=== PATIENT | male | born 1990 | race Caucasian/White ===

== ENCOUNTER 2023-05-02 21:17 | Inpatient (IN) | payer SELFPAY ==
[2023-05-02] VITALS (9 sets, daily range): BP systolic 123–164; BP diastolic 77–107; PULSE 77–92; RESP 14–20; TEMP 36.7–37; O2SAT 96–99; BMI 35.4
--- NOTE | 2023-05-02 21:27 | XR_ITS ---
PROCEDURE INFORMATION: Exam: XR Chest Exam date and time: 05/02/2023 9:55 PM Age: 32 years old Clinical indication: Shortness of breath; Additional info: SOA TECHNIQUE: Imaging protocol: Radiologic exam of the chest. Views: 1 view. COMPARISON: [id number] CT abdomen pelvis wo/w con 04/02/2018 12:31 PM FINDINGS: Lungs: No evidence of acute pulmonary disease or infiltrates; lung matta appear clear. Pleural spaces: No evidence of pleural effusion, pneumothorax, or pleural thickening in the visualized pleural spaces. Heart/Mediastinum: No evidence of mediastinal widening or cardiac silhouette enlargement; the mediastinum and heart appear within normal limits for contour and size. Bones/joints: No evidence of acute osseous abnormalities within the visualized portions of the thoracic spine and ribs. Osseous structures appear appropriate for patient age. IMPRESSION: Negative study. No acute cardiopulmonary abnormalities identified. Osseous structures within the visualized portions of the thoracic spine and ribs show no acute abnormalities and appear appropriate for patient age.
--- NOTE | 2023-05-02 21:43 | HMH.EDGENADL ---
Discharge Plan Disposition Patient Disposition: Home, Self-Care Prescriptions Prescriptions: No Action sulfamethoxazole-trimethoprim 1 EACH tablet 1 each PO BID Qty: 6 0RF ketorolac 10 MG tablet 10 mg PO Q12 Qty: 6 0RF tamsulosin 0.4 MG capsule 0.4 mg PO HS Qty: 5 0RF ondansetron 4 MG tablet,disintegrating 4 mg PO Q8HP PRN (Reason: Nausea) Qty: 6 0RF Referrals Follow up/Referrals: Provider,Referral, MD [Primary Care Provider] - See instructions Clinical Impressions Clinical Impression: Non-ST elevation [place] (NSTEMI) Discharge ED Provider: José Luis Mendoza General Adult HPI General Chief complaint: PAIN Stated complaint: jaw pain burning sensation Time Seen by Provider: 05/02/23 21:21 Mode of Arrival: Ambulatory Limitations: No Limitations Description of Symptoms (Recalled from ER Triage Doc. by RN): Pt c/o burning sensation across chest that radiates up neck and into jaw starting 2 days ago. Pt also c/o SOA, cough, and lightheadedness associated with exertion. Pt states symptoms improve with rest. History of Present Illness HPI narrative: 32-year-old male history of GERD presenting with chest burning and shortness of breath. Patient states shortness of breath started last couple days when he is been exerting himself and associated with burning in the center of his chest. Radiates across his chest and up to his neck. Associated with numbness in his jaw. No diaphoresis, nausea or vomiting or neurologic deficits otherwise. Related Data Previous Rx's Medication Instructions Recorded ketorolac 10 mg tablet 10 mg PO Q12 #6 tabs 04/02/18 ondansetron 4 mg disintegrating 4 mg PO Q8HP PRN Nausea ##6 04/02/18 tablet sulfamethoxazole 800 1 each PO BID #6 tabs 04/02/18 mg-trimethoprim 160 mg tablet tamsulosin 0.4 mg capsule 0.4 mg PO HS #5 caps 04/02/18 Allergies Allergy/AdvReac Type Severity Reaction Status Date / Time INGREDIENT: NO KNOWN - NO Allergy Unknown Uncoded 06/26/17 14:51 KNOWN DRUG ALLERGY NKA - NO KNOWN ALLERGIES Allergy Unknown Uncoded 06/26/17 14:51 [facility] Disclaimer: The information contained in this section may have been updated after the patient was seen, as this information can be updated by other users. Social History Smoking Status: Unknown if ever smoked alcohol intake: never current occupational status: employed Travel in the last 8 weeks: None ROS Obtained: Yes All systems reviewed & no additional complaints except as documented Physical Exam General General appearance: alert and in no apparent distress Head Head exam: atraumatic and normocephalic Eye Eye exam: Present normal appearance, PERRL and EOMI ENT ENT exam: Present mucous membranes moist Neck Neck exam: Present normal inspection, full ROM and trachea midline Respiratory Respiratory exam: Present normal lung sounds bilaterally; Absent respiratory distress, wheezes, stridor, accessory muscle use or prolonged expiratory phase Cardiovascular Cardiovascular exam: Present regular rate and normal rhythm Abdominal Exam Abdominal exam: Present soft; Absent distention, tenderness, guarding, rebound, rigidity or normal bowel sounds Extremities Exam Extremities exam: Absent edema Neurological Exam Neurological exam: Present alert, oriented X3, CN II-XII intact and normal gait; Absent motor sensory deficit Skin Skin exam: Present warm and dry; Absent diaphoresis or erythema Medical Decision Making Medical Records Medical records reviewed: Yes I reviewed the patient's medical records. [place] Inquiry Pt receiving controlled substance: No [place] was queried for this patient: No Vital Signs: 05/02/23 21:18 Temperature 98.6 F Temperature Source Oral Pulse Rate [Left Radial] 92 H Respiratory Rate 20 Blood Pressure [Right Arm] 158/107 H Blood Pressure Mean [Right Arm] 124 02 Sat by Pulse Oximetry 97 Oxygen Delivery Method Room Air Lab Data Lab Results 05/02/23 21:5
--- NOTE | 2023-05-02 21:49 | ECG_ITS ---
APPROVED REPORT Exam: Resting ECG HR:93 bpm ECG Measurements Heart Rate 93 AXES MO 142 P 64 QRSd 89 QRS 77 QT 338 T -19 QTc 389 Conclusion SINUS RHYTHM NONSPECIFIC T-WAVE ABNORMALITY ABNORMAL ECG UNCONFIRMED REPORT Electronically signed by : Devin Navarro MD 05/03/2023 21:26:58
[2023-05-02 22:04] LABS: Basophils # 0.1 K/mm3 (0-0.2); Basophils % 1.1 % (0.1-2.0); Eosinophils # 0.3 K/mm3 (0.0-0.4); Eosinophils % 2.6 % (0.1-12.0); Hemoglobin 14.8 g/dL (14.1-18.0); Lymphocytes # 3.7 K/mm3 (0.7-4.5); Lymphocytes % 30.9 % (10-50); Mean Corpuscular HGB Conc 34.5 g/dL (31.8-35.4); Mean Corpuscular Hemoglobin 29.8 pg (27.0-31.2); Mean Corpuscular Volume 86.4 fl (80-94); Mean Platelet Volume 8.5 fl (7.4-10.4); Monocytes # 0.7 K/mm3 (0.1-1.0); Monocytes % 5.8 % (1.7-9.3); Neutrophils # 7.2 K/mm3 (1.8-7.8); Neutrophils % 59.5 % (37.0-80.0); Platelet Count 300 K/mm3 (142-424); Red Blood Count 4.97 M/mm3 (4.60-6.20); Red Cell Distribution Width 13.8 % (11.5-17.5)
[2023-05-02 22:13] LABS: Chloride 104 mmol/L (98-107); Potassium 4.1 mmoL/L (3.5-5.1); Sodium 137 mmol/L (136-145)
[2023-05-02 22:15] LABS: Blood Urea Nitrogen 15 mg/dl (9-20); Creatinine Clearance Estimated 233 mL/min (50-200); Estimated Glomerular Filt Rate 131 ml/min (>60); GFR (African American) 158 ML/MIN (>60)
[2023-05-02 22:16] LABS: Alanine Aminotransferase 40 U/L (12-78); Albumin Level 4.6 g/dl (3.5-5.0); Albumin/Globulin Ratio 1.4 (1.1-1.8); Alkaline Phosphatase 69 U/L (38-126); Anion Gap 13.1 mEq/L (5-15); Aspartate Amino Transferase 32 U/L (17-59); Bilirubin,Total 0.2 mg/dl (0.2-1.3); Carbon Dioxide 24 mmol/L (22.0-30.0); Globulin 3.4 g/dL (1.3-3.2); Lipase 162 U/L (23-300)
[2023-05-02 22:17] LABS: Calcium 8.9 mg/dl (8.4-10.2); Glucose 334 mg/dl (74-100)
--- NOTE | 2023-05-02 22:40 | PC.NURSE ---
received critical lab from maurice cisneros
--- NOTE | 2023-05-02 22:52 | ECG_ITS ---
APPROVED REPORT Exam: Resting ECG HR:76 bpm ECG Measurements Heart Rate 76 AXES RI 146 P 31 QRSd 93 QRS 70 QT 345 T -22 QTc 376 Conclusion SINUS RHYTHM NONSPECIFIC T-WAVE ABNORMALITY ABNORMAL ECG UNCONFIRMED REPORT Electronically signed by : Devin Navarro MD 05/03/2023 21:26:47
--- NOTE | 2023-05-02 23:20 | PC.NURSE ---
Contacted pharmacy for heparin consult.
--- NOTE | 2023-05-02 23:32 | EXP.HP ---
History of Present Illness *Admission Date: 05/02/23 *Reason for visit:: intermittent chest pressure *History of present illness: This a 32-year-old male significantr history of heavy smoker, 1-2 PPD over last 17 years. obesity, GERD presenting with chest pressure and shortness of breath. Patient stated shortness of breath started last couple days when he is been exerting himself and associated with pressure in the center of his chest. Sometime patient describe it as burning. Radiates across his chest and up to his neck. Associated with numbness in his jaw. No diaphoresis, nausea or vomiting or neurological deficits otherwise. Admitted for further work up and management. [facility] Disclaimer: The information contained in this section may have been updated after the patient was seen, as this information can be updated by other users. Social History (Updated 05/03/23 @ 00:18 by Sofy Hubbard RN) Smoking Status: Unknown if ever smoked alcohol intake: never current occupational status: employed Travel in the last 8 weeks: None Review of Systems Review of Systems Review of systems:: pertinent systems reviewed and negative unless documented below Meds Home Medications and Allergies Home Medications Medication Instructions Recorded Confirmed Type No Known Home Medications 05/03/23 05/03/23 History New Prescriptions to Start Prescriptions: Allergies Allergy/AdvReac Type Severity Reaction Status Date / Time No Known Allergies Allergy Unverified 05/03/23 07:39 Exam Data for Last 24 hours Vital signs and Labs for Last 24 Hours: Temp Pulse Resp BP Pulse Ox O2 Del Method 98.6 F 92 H 20 158/107 H 97 Room Air 05/02/23 21:18 05/02/23 21:18 05/02/23 21:18 05/02/23 21:18 05/02/23 21:18 05/02/23 21:18 Laboratory Results - last 24 hr 05/02/23 21:50: WBC 12.0 H, RBC 4.97, Hgb 14.8, Hct 43.0, MCV 86.4, MCH 29.8, MCHC 34.5, RDW 13.8, Plt Count 300, MPV 8.5, Neut % (Auto) 59.5, Lymph % (Auto) 30.9, [place] % (Auto) 5.8, Eos % (Auto) 2.6, Baso % (Auto) 1.1, Neut # (Auto) 7.2, Lymph # (Auto) 3.7, [place] # (Auto) 0.7, Eos # (Auto) 0.3, Baso # (Auto) 0.1, Sodium 137, Potassium 4.1, Chloride 104, Carbon Dioxide 24, Anion Gap 13.1, BUN 15, Creatinine 0.70, Estimated Creat Clear 233, Estimated GFR 131, Est GFR ( Amer) 158, Glucose 334 H, Calcium 8.9, Total Bilirubin 0.2, AST 32, ALT 40, Alkaline Phosphatase 69, Troponin I 0.60 H, Total Protein 8.0, Albumin 4.6, Globulin 3.4 H, Albumin/Globulin Ratio 1.4, Lipase 162 I & O for Last 24 hours: Intake & Output 04/29/23 04/30/23 05/01/23 05/02/23 23:59 23:59 23:59 23:59 Weight 108.862 kg Constitutional Constitutional: mild distress, obese and cooperative *Routine HEENT Exam Head: Present normocephalic and atraumatic Eye: Present EOMI, PERRL and normal accommodation ENT: Present mucous membranes moist *Routine Neck Exam Neck: Present supple, full ROM and trachea midline *Routine Respiratory Exam Respiratory: Present normal respiratory effort, able to speak in complete sentences and symmetric chest movement *Routine Cardiovascular Exam Cardiovascular: Present RRR, Normal S1 and Normal S2 *Routine Abdominal Exam Abdominal: Present soft, normoactive bowel sounds and obese; Absent organomegaly *Routine Rectal Exam Rectal:: deferred *Routine Genitalia Exam Genitalia:: deferred *Routine Extremities Exam Extremities: Present full ROM, pulses intact and normal capillary refill; Absent cyanosis, clubbing or edema *Routine Skin Exam Skin: Present intact, dry and warm *Routine Neurological Exam Neurological: Present alert, oriented X3, motor deficit, normal reflexes, moving all extremities and normal speech Routine Psychiatric Exam Psychiatric: Present cooperative, good insight, good judgment and anxious H&P: Result Imaging and Cardiology EKG: Status: image reviewed by me and final report Chest x-ray: Status: image reviewed by me and
--- NOTE | 2023-05-02 23:34 | PC.NURSE ---
ER Md on phone with hospitalist for admission, pt has been accepted and house superintendent made aware for bed assignment
--- NOTE | 2023-05-02 23:52 | PC.NURSE ---
report called to stanislav thakkar rn
[2023-05-02 23:56] LABS: Prothrombin Time 9.8 seconds (10.1-12.5)
[2023-05-02 23:58] LABS: PTT Heparin (inpatient only) 27.4 Seconds (23.6-34.0)
[2023-05-03] VITALS (24 sets, daily range): BP systolic 128–175; BP diastolic 69–112; PULSE 79–98; RESP 16–18; TEMP 36.4–37; O2SAT 94–99; BMI 34.4
--- NOTE | 2023-05-03 | PC.NURSE ---
Patient arrived to floor via stretcher at 23:59.
[2023-05-03 01:13] LABS: Troponin I 0.65 ng/ml (0.00-0.034)
[2023-05-03 02:56] LABS: Amphetamine/Metha Screen,Urine Negative ng/ml (<1000); Benzodiazepines Screen,Urine Negative ng/ml (<200)
[2023-05-03 02:57] LABS: Barbiturates Screen,Urine Negative ng/ml (<200)
[2023-05-03 02:58] LABS: Cannabinoid Screen,Urine Positive ng/ml (<50); Cocaine Screen,Urine Negative ng/ml (<300)
[2023-05-03 02:59] LABS: Methadone Screen,Urine Negative ng/ml (<300); Opiate Screen,Urine Negative ng/ml (<300)
[2023-05-03 03:00] LABS: Phencyclidine Screen,Urine Negative ng/ml (<25)
[2023-05-03 03:53] LABS: Basophils # 0.1 K/mm3 (0-0.2); Basophils % 1.3 % (0.1-2.0); Eosinophils # 0.3 K/mm3 (0.0-0.4); Eosinophils % 2.8 % (0.1-12.0); Hematocrit 42.4 % (42.0-52.0); Hemoglobin 14.7 g/dL (14.1-18.0); Lymphocytes # 4.4 K/mm3 (0.7-4.5); Lymphocytes % 43.6 % (10-50); Mean Corpuscular HGB Conc 34.6 g/dL (31.8-35.4); Mean Corpuscular Hemoglobin 30.5 pg (27.0-31.2); Mean Corpuscular Volume 88.2 fl (80-94); Mean Platelet Volume 8.4 fl (7.4-10.4); Monocytes # 0.5 K/mm3 (0.1-1.0); Monocytes % 4.7 % (1.7-9.3); Neutrophils # 4.8 K/mm3 (1.8-7.8); Neutrophils % 47.7 % (37.0-80.0); Platelet Count 278 K/mm3 (142-424); Red Cell Distribution Width 13.8 % (11.5-17.5)
[2023-05-03 04:18] LABS: Chloride 105 mmol/L (98-107); Potassium 3.7 mmoL/L (3.5-5.1); Sodium 137 mmol/L (136-145)
[2023-05-03 04:20] LABS: Alanine Aminotransferase 36 U/L (12-78); Blood Urea Nitrogen 12 mg/dl (9-20); Creatinine Clearance Estimated 264 mL/min (50-200); Estimated Glomerular Filt Rate 156 ml/min (>60); GFR (African American) 189 ML/MIN (>60)
[2023-05-03 04:21] LABS: Albumin/Globulin Ratio 1.3 (1.1-1.8); Alkaline Phosphatase 82 U/L (38-126); Anion Gap 12.7 mEq/L (5-15); Aspartate Amino Transferase 31 U/L (17-59); Calcium 8.1 mg/dl (8.4-10.2); Carbon Dioxide 23 mmol/L (22.0-30.0); Cholesterol 210 mg/dl (140-200); Globulin 3.1 g/dL (1.3-3.2); Glucose 301 mg/dl (74-100); Magnesium 1.4 mg/dl (1.6-2.3); Total Protein,Serum 7.1 g/dl (6.3-8.2)
[2023-05-03 04:22] LABS: HDL Cholesterol 21 mg/dl (40-60)
[2023-05-03 04:26] LABS: Hemoglobin A1C 10.2 % (4.0-6.0)
[2023-05-03 04:33] LABS: Direct LDL Cholesterol 44.32 mg/dL (100-129)
--- NOTE | 2023-05-03 04:44 | US_ITS ---
FINAL REPORT TECHNIQUE: Ultrasound images of the kidneys and bladder were obtained. CLINICAL HISTORY: HTN FINDINGS: The right kidney measures 11.1 cm in length. It is normal in echogenicity. There is no hydronephrosis. The left kidney measures 10.9 cm in length. It is normal in echogenicity. There is no hydronephrosis. There is fatty infiltration of the liver. The spleen is normal. IMPRESSION: Fatty liver. Reviewed, Interpreted and Dictated by Tato Cardenas III, MD Transcribed by Brittany Munoz Authenticated and [facility]
[2023-05-03 04:48] LABS: Troponin I 1.01 ng/ml (0.00-0.034)
--- NOTE | 2023-05-03 04:51 | PC.NURSE ---
CRITICAL TROPONIN REPORTED FROM LAB 1.01 NAME AND VERIFIED. LESLIE FREEMAN NOTIFIED. NO NEW ORDERS AT THIS TIME
[2023-05-03 05:24] LABS: Triglycerides 1735 mg/dl (30-150)
[2023-05-03 05:25] LABS: Bilirubin,Total 0.1 mg/dl (0.2-1.3)
[2023-05-03 06:47] LABS: POC Glucose,Bedside 251 (70-110)
--- NOTE | 2023-05-03 07:52 | EXP.ACUTE.PN ---
Subjective *Date: 05/03/23 *Time: 14:19 Interval history: Improvement in pain. Patient stable on room air. Going to [employer] this morning. No nausea or vomiting. Further discussion, patient elicits that for the past 6 to 12 months has been having increased thirst, urination, nocturia. Concerning signs of diabetes. Discussed his diagnosis of diabetes and CAD today. Medical Exam Vital signs and Labs for Last 24 Hours: Vital Signs Temp Pulse Pulse Resp BP BP Pulse Ox 05/03/23 07:30 98.0 F 87 18 175/89 H 97 05/03/23 06:42 05/03/23 05:00 05/03/23 04:00 90 05/03/23 03:00 05/03/23 04:00 97.6 F 80 18 143/82 H 96 05/03/23 00:30 05/03/23 01:00 05/03/23 00:00 98.3 F 86 18 164/104 H 98 05/02/23 23:55 98.1 F 83 14 164/104 H 05/02/23 23:30 89 150/95 H 98 05/02/23 23:15 86 147/89 H 97 05/02/23 23:00 82 141/87 H 96 05/02/23 22:45 83 134/86 97 05/02/23 22:30 83 137/84 97 05/02/23 22:15 77 123/77 97 05/02/23 22:02 86 130/97 H 98 05/02/23 21:18 98.6 F 92 H 20 158/107 H 97 O2 Del Method 05/03/23 07:30 Room Air 05/03/23 06:42 Room Air 05/03/23 05:00 Room Air 05/03/23 04:00 05/03/23 03:00 Room Air 05/03/23 04:00 Room Air 05/03/23 00:30 Room Air 05/03/23 01:00 Room Air 05/03/23 00:00 Room Air 05/02/23 23:55 Room Air 05/02/23 23:30 05/02/23 23:15 05/02/23 23:00 05/02/23 22:45 05/02/23 22:30 05/02/23 22:15 05/02/23 22:02 05/02/23 21:18 Room Air Intake and Output 05/02/23 05/02/23 05/03/23 15:59 23:59 07:59 Intake Total 375 / 375 Output Total 400 / 400 Balance - Intake: Intake, Total IV Amount 375 / 375 0.9 % Sodium Chloride 1000ML 1, 257 / 257 000 ml @ 50 mls/hr IV .Q20H WALLY Rx#:[id number] Heparin Sodium,Porcine/D5w 500 118 / 118 ml @ 1,000 UNITS/HR 20 mls/hr IV .Q25H WALLY Rx#:[id number] Output: Output, Urine Amount 400 / 400 Other: Number of Unmeasured Voids 1 Weight 108.862 kg 105.404 kg Patient Weight 05/03/23 23:59 Weight 105.404 kg Laboratory Results - last 24 hr 05/02/23 00:07: Urine Opiates Screen Negative, Urine Methadone Screen Negative, Ur Barbituates Screen Negative, Ur Phencyclidine Scrn Negative, Ur Amphetamines Screen Negative, U Benzodiazepines Scrn Negative, Urine Cocaine Screen Negative, U Marijuana (THC) Screen Positive H 05/02/23 21:50: WBC 12.0 H, RBC 4.97, Hgb 14.8, Hct 43.0, MCV 86.4, MCH 29.8, MCHC 34.5, RDW 13.8, Plt Count 300, MPV 8.5, Neut % (Auto) 59.5, Lymph % (Auto) 30.9, [place] % (Auto) 5.8, Eos % (Auto) 2.6, Baso % (Auto) 1.1, Neut # (Auto) 7.2, Lymph # (Auto) 3.7, [place] # (Auto) 0.7, Eos # (Auto) 0.3, Baso # (Auto) 0.1, PT 9.8 L, INR 0.90, APTT 27.4, Sodium 137, Potassium 4.1, Chloride 104, Carbon Dioxide 24, Anion Gap 13.1, BUN 15, Creatinine 0.70, Estimated Creat Clear 233, Estimated GFR 131, Est GFR ( Amer) 158, Glucose 334 H, Calcium 8.9, Total Bilirubin 0.2, AST 32, ALT 40, Alkaline Phosphatase 69, Troponin I 0.60 H, Total Protein 8.0, Albumin 4.6, Globulin 3.4 H, Albumin/Globulin Ratio 1.4, Lipase 162 05/03/23 00:30: Troponin I 0.65 H 05/03/23 03:43: WBC 10.0, RBC 4.80, Hgb 14.7, Hct 42.4, MCV 88.2, MCH 30.5, MCHC 34.6, RDW 13.8, Plt Count 278, MPV 8.4, Neut % (Auto) 47.7, Lymph % (Auto) 43.6, [place] % (Auto) 4.7, Eos % (Auto) 2.8, Baso % (Auto) 1.3, Neut # (Auto) 4.8, Lymph # (Auto) 4.4, [place] # (Auto) 0.5, Eos # (Auto) 0.3, Baso # (Auto) 0.1, Sodium 137, Potassium 3.7, Chloride 105, Carbon Dioxide 23, Anion Gap 12.7, BUN 12, Creatinine 0.60 L, Estimated Creat Clear 264, Estimated GFR 156, Est GFR ( Amer) 189, Glucose 301 H, Hemoglobin A1c 10.2 H, Calcium 8.1 L, Magnesium 1.4 L, Total Bilirubin 0.1 L, AST 31, ALT 36, Alkaline Phosphatase 82, Troponin I 1.01 H, Total Protein 7.1, Albumin 4.0 D, Globulin 3.1, Albumin/Globulin Ratio 1.3, Triglyceride
--- NOTE | 2023-05-03 08:51 | IR_ITS ---
APPROVED REPORT Patient Location: Inpatient [facility] S[facility]: MARY JANE Baxter RT (R) PROCEDURES Left heart catheterization Left ventriculogram Selective coronary angiogram Drug-eluting stent deployment to the proximal and mid LAD INDICATION Acute non-ST elevation myocardial infarction, Coronary artery disease Informed consent was obtained prior to the procedure. COMPLICATIONS None Estimated Blood Loss: Less than 10 mls TECHNIQUE One percent lidocaine used to anesthetize the right anterior aspect of the wrist. The right radial artery was accessed via the Seldinger technique. A 6 Luxembourg[place] sheath was placed in the right radial artery. 2.5 mg of Verapamil, 800 mcg of nitroglycerin, 1mg Lidocaine and 5000 U Heparin were given through the arterial sheath. The papa catheter was also used to perform left heart catheterization, left ventriculogram and selective coronary angiogram. The end of the diagnostic angiogram therapeutic heparin was administered given therapeutic ACT and the guide catheter was placed in left main artery followed by Choice PT extra-support wire being placed on the LAD. A 3 mm x 38 mm Anthony frontier stent was deployed at 18 meena reducing this critical stenosis to 0%. TRACY-3 flow was present before and after the procedure. At the end of procedure the apparatus was removed the sheath was removed and hemostasis was achieved using TR banding patient was transferred to the postop holding in stable condition ANGIOGRAPHIC RESULTS The left main artery Normal The left anterior descending artery Has a proximal concentric 70 followed by 50% stenosis followed by a mid vessel 80 to 90% stenosis. The first diagonal artery is 2 mm in diameter and has an ostial 50% stenosis followed by proximal 90% concentric stenosis The circumflex artery Gives rise to a moderate size ramus intermedius which has a proximal concentric 70% stenosis. The circumflex artery is dominant and has diffuse 10 to 20% stenoses The right coronary artery Is nondominant and has proximal greater than 90% stenosis with mid vessel 80% stenoses. Distal vessel was subtotally occluded and fills via [id number] collaterals The LEIVA ventriculogram reveals Preserved at 55% The left ventricular end-diastolic pressure 25 mmHg IMPRESSION Coronary disease as described above Successful stenting of the proximal to mid LAD severe disease reduced to 0% with 1 long drug-eluting stent Persistent severe stenosis in the first diagonal artery which is best managed medically at this time Persistent moderate to severe stenosis in a large ramus intermedius Chronically occluded right coronary artery which fills via [id number] collaterals Preserved ejection fraction with elevated LVEDP PLAN 1. Effient 10 mg daily plus aspirin 81 mg daily 2. Immediate avoidance of tobacco products 3. LDL less than 55 to be achieved with high intensity statin 4. Recommend stress test in 6 weeks to determine if reversible ischemia is present in the ramus intermedius 5. Recommend sleep study 6. Aggressive risk factor modification 7. Cardiac rehabilitation Electronically signed by : Papito Davenport MD 05/03/2023 13:29:04
[2023-05-03 10:14] LABS: PTT Heparin (inpatient only) 27.9 Seconds (23.6-34.0)
--- NOTE | 2023-05-03 10:42 | EXP.CARD.CON ---
History of Present Illness History of Present Illness Consult date: 05/03/23 Requesting physician: Romulo Virk Consult reason: chest pain Chief complaint: Unstable angina History of present illness: 32-year-old male with past medical hx of heavy smoker, 1-2 PPD over last 17 years, obesity, GERD, new dx of DM and strong family hx of CAD presented to ED last night with complaint of chest pain and soa intermittently x 3 days, present at rest and exacerbated with activity, radiating across chest and into jaws. He reports he does not usually go to the doctor but continued to feel so bad his family made him come to the ER. EKG upon presentation to ER shows normal sinus rhythm with a rate of 93 with T wave inversion in inferior leads but without reciprocal change. Labs as follow: WBC 10, hemoglobin 14.7, sodium 137, potassium 4.1, creatinine 0.7, A1c 10.2, initial troponin 0.6 trending up to 1.01 and triglycerides 1735. Chest x-ray was negative for acute process. Patient was admitted for cardiology evaluation. [facility] Disclaimer: The information contained in this section may have been updated after the patient was seen, as this information can be updated by other users. Social History (Updated 05/03/23 @ 00:18 by Sofy Hubbard RN) Smoking Status: Unknown if ever smoked alcohol intake: never current occupational status: employed Travel in the last 8 weeks: None Review of Systems *Cardiovascular Cardiovascular: Reports chest pain and Reports dyspnea *Respiratory Respiratory: Reports dyspnea Exam Data for Last 24 hours Vital signs and Labs for Last 24 Hours: Temp Pulse Resp BP Pulse Ox O2 Del Method 98.0 F 90 18 175/89 H 97 Room Air 05/03/23 07:30 05/03/23 08:00 05/03/23 07:30 05/03/23 07:30 05/03/23 07:30 05/03/23 07:30 Laboratory Results - last 24 hr 05/02/23 00:07: Urine Opiates Screen Negative, Urine Methadone Screen Negative, Ur Barbituates Screen Negative, Ur Phencyclidine Scrn Negative, Ur Amphetamines Screen Negative, U Benzodiazepines Scrn Negative, Urine Cocaine Screen Negative, U Marijuana (THC) Screen Positive H 05/02/23 21:50: WBC 12.0 H, RBC 4.97, Hgb 14.8, Hct 43.0, MCV 86.4, MCH 29.8, MCHC 34.5, RDW 13.8, Plt Count 300, MPV 8.5, Neut % (Auto) 59.5, Lymph % (Auto) 30.9, [place] % (Auto) 5.8, Eos % (Auto) 2.6, Baso % (Auto) 1.1, Neut # (Auto) 7.2, Lymph # (Auto) 3.7, [place] # (Auto) 0.7, Eos # (Auto) 0.3, Baso # (Auto) 0.1, PT 9.8 L, INR 0.90, APTT 27.4, Sodium 137, Potassium 4.1, Chloride 104, Carbon Dioxide 24, Anion Gap 13.1, BUN 15, Creatinine 0.70, Estimated Creat Clear 233, Estimated GFR 131, Est GFR ( Amer) 158, Glucose 334 H, Calcium 8.9, Total Bilirubin 0.2, AST 32, ALT 40, Alkaline Phosphatase 69, Troponin I 0.60 H, Total Protein 8.0, Albumin 4.6, Globulin 3.4 H, Albumin/Globulin Ratio 1.4, Lipase 162 05/03/23 00:30: Troponin I 0.65 H 05/03/23 03:43: WBC 10.0, RBC 4.80, Hgb 14.7, Hct 42.4, MCV 88.2, MCH 30.5, MCHC 34.6, RDW 13.8, Plt Count 278, MPV 8.4, Neut % (Auto) 47.7, Lymph % (Auto) 43.6, [place] % (Auto) 4.7, Eos % (Auto) 2.8, Baso % (Auto) 1.3, Neut # (Auto) 4.8, Lymph # (Auto) 4.4, [place] # (Auto) 0.5, Eos # (Auto) 0.3, Baso # (Auto) 0.1, Sodium 137, Potassium 3.7, Chloride 105, Carbon Dioxide 23, Anion Gap 12.7, BUN 12, Creatinine 0.60 L, Estimated Creat Clear 264, Estimated GFR 156, Est GFR ( Amer) 189, Glucose 301 H, Hemoglobin A1c 10.2 H, Calcium 8.1 L, Magnesium 1.4 L, Total Bilirubin 0.1 L, AST 31, ALT 36, Alkaline Phosphatase 82, Troponin I 1.01 H, Total Protein 7.1, Albumin 4.0 D, Globulin 3.1, Albumin/Globulin Ratio 1.3, Triglycerides 1735 H, Cholesterol 210 H, LDL Cholesterol Direct 44.32 L, HDL Cholesterol 21 L, Cholesterol/HDL Ratio 10.0 H 05/03/23 06:10: APTT 27.9 05/03/23 06:35: POC Glucose 251 H I & O for Last 24 hours: Intake & Output 04/30/23 05/01/23 05/02/23 05/03/23 23:59 23:59 23:59 23:59 Intake Total 645 / 645 Output Total 400 / 400 Balance 24
--- NOTE | 2023-05-03 10:52 | HMH.PHAHEP ---
[facility] Pharmacy Heparin Dosing Demographic Data Admission date:: 05/02/23 Date: 05/03/23 Time: 10:52 Allergies Allergy/AdvReac Type Severity Reaction Status Date / Time No Known Allergies Allergy Unverified 05/03/23 07:39 Height: 1.75 m Weight: 105.4 kg Indication Medication therapy:: Heparin Current Active Problems (Updated 05/03/23 @ 14:23 by Romulo Virk MD) Newly diagnosed diabetes (Acute) CAD (coronary artery disease) (Acute) HLD (hyperlipidemia) (Acute) Tobacco abuse (Acute) Obesity (BMI 30-39.9) (Acute) Intermittent chest pain (Acute) Hypertensive urgency (Acute) Tetrahydrocannabinol (THC) use disorder, mild, abuse (Acute) Non-ST elevation SD (NSTEMI) (Acute) CVA?: No Bleeding problem?: No Kidney disease?: No SD?: Yes Desired PTT range:: 50-75 seconds Labs Anticoagulation Lab Results:: 05/02/23 05/03/23 21:50 03:43 Hgb 14.8 14.7 Hct 43.0 42.4 Plt Count 300 278 Monitoring Dose Monitor 1: Date: 05/02/23 Time: 21:50 PTT Result:: 27.4 Infusion Rate:: HEPARIN BOLUS 4000 UNIT BOLUS; HEPARIN 20 ML/HR (1000 UNITS/HR) Dose Monitor 2: Date: 05/03/23 Time: 06:10 PTT Result:: 27.9 Infusion Rate:: HEPARIN 4000 UNITS BOLUS; HEPARIN 28 ML/HR (1400 UNITS/HR) Core Measures Is INR > or = 2 at discharge?: No Most Recent Labs:: Laboratory Results - last 24 hr 05/02/23 00:07: Urine Opiates Screen Negative, Urine Methadone Screen Negative, Ur Barbituates Screen Negative, Ur Phencyclidine Scrn Negative, Ur Amphetamines Screen Negative, U Benzodiazepines Scrn Negative, Urine Cocaine Screen Negative, U Marijuana (THC) Screen Positive H 05/02/23 21:50: WBC 12.0 H, RBC 4.97, Hgb 14.8, Hct 43.0, MCV 86.4, MCH 29.8, MCHC 34.5, RDW 13.8, Plt Count 300, MPV 8.5, Neut % (Auto) 59.5, Lymph % (Auto) 30.9, [place] % (Auto) 5.8, Eos % (Auto) 2.6, Baso % (Auto) 1.1, Neut # (Auto) 7.2, Lymph # (Auto) 3.7, [place] # (Auto) 0.7, Eos # (Auto) 0.3, Baso # (Auto) 0.1, PT 9.8 L, INR 0.90, APTT 27.4, Sodium 137, Potassium 4.1, Chloride 104, Carbon Dioxide 24, Anion Gap 13.1, BUN 15, Creatinine 0.70, Estimated Creat Clear 233, Estimated GFR 131, Est GFR ( Amer) 158, Glucose 334 H, Calcium 8.9, Total Bilirubin 0.2, AST 32, ALT 40, Alkaline Phosphatase 69, Troponin I 0.60 H, Total Protein 8.0, Albumin 4.6, Globulin 3.4 H, Albumin/Globulin Ratio 1.4, Lipase 162 05/03/23 00:30: Troponin I 0.65 H 05/03/23 03:43: WBC 10.0, RBC 4.80, Hgb 14.7, Hct 42.4, MCV 88.2, MCH 30.5, MCHC 34.6, RDW 13.8, Plt Count 278, MPV 8.4, Neut % (Auto) 47.7, Lymph % (Auto) 43.6, [place] % (Auto) 4.7, Eos % (Auto) 2.8, Baso % (Auto) 1.3, Neut # (Auto) 4.8, Lymph # (Auto) 4.4, [place] # (Auto) 0.5, Eos # (Auto) 0.3, Baso # (Auto) 0.1, Sodium 137, Potassium 3.7, Chloride 105, Carbon Dioxide 23, Anion Gap 12.7, BUN 12, Creatinine 0.60 L, Estimated Creat Clear 264, Estimated GFR 156, Est GFR ( Amer) 189, Glucose 301 H, Hemoglobin A1c 10.2 H, Calcium 8.1 L, Magnesium 1.4 L, Total Bilirubin 0.1 L, AST 31, ALT 36, Alkaline Phosphatase 82, Troponin I 1.01 H, Total Protein 7.1, Albumin 4.0 D, Globulin 3.1, Albumin/Globulin Ratio 1.3, Triglycerides 1735 H, Cholesterol 210 H, LDL Cholesterol Direct 44.32 L, HDL Cholesterol 21 L, Cholesterol/HDL Ratio 10.0 H 05/03/23 06:10: APTT 27.9 05/03/23 06:35: POC Glucose 251 H If INR was < than 2.0 why was therapy stopped?: heparin drip stopped after heart cath Were Heparin and Warfarin started on the same day?: No If not, why?: heparin drip stopped after heart cath
[2023-05-03 11:49] LABS: POC Glucose,Bedside 232 (70-110)
[2023-05-03 14:09] LABS: CATHL Activated Clotting Time 303 SEC (74-125)
[2023-05-03 16:19] LABS: POC Glucose,Bedside 279 (70-110)
[2023-05-03 21:44] LABS: POC Glucose,Bedside 175 (70-110)
--- NOTE | 2023-05-03 22:47 | PC.NURSE ---
PATIENT HAVING CHEST PAIN. DR GREEN ORDERED STAT 12 LEAD AND WANTS A PICTURE SENT TO HIM. ALSO LYDIA Singh NP ORDERED SL NTG.
--- NOTE | 2023-05-03 22:55 | ECG_ITS ---
APPROVED REPORT Exam: Resting ECG HR:82 bpm ECG Measurements Heart Rate 82 AXES LA 152 P 41 QRSd 89 QRS 60 QT 346 T 10 QTc 385 Conclusion SINUS RHYTHM NORMAL ECG UNCONFIRMED REPORT Electronically signed by : Devin Navarro MD 05/04/2023 17:04:46
--- NOTE | 2023-05-03 23:07 | PC.NURSE ---
12 LEAD EKG OBTAINED, AND WAS WNL, AND SENT TO DR GREENFOR REVIEW.
--- NOTE | 2023-05-03 23:19 | PC.NURSE ---
AT 2305 2ND NTG S.L. GIVEN. CP 09/15. BP WAS 138/84 AT THAT TIME. PATIENT REPORTS RELIEF BUT FEELS NERVOUS.
--- NOTE | 2023-05-03 23:35 | CA_ITS ---
APPROVED REPORT EXAM: Comprehensive 2D, Doppler, and color-flow Echocardiogram School Psychology Specialist: Lois Livingston CRT Ht: 5 ft 9 in Wt: 240lbs BSA: 2.23 BP: 158/107 mmHg Indications: Chest Pain, Shortness of Breath, Diabetes, Hyperlipidemia, Hypertension/HDD, GERD, NSTEMI, Smoker 2D Dimensions LVOT 2.06 cm (M/F) 1.5-2.5 LA Volume 30.50 mL LA Volume Index 13.30 mL/m2 (M/F) 16-34 M-Mode Dimensions RVDd 2.68 cm (0.9-2.6) LA Diam 3.37 cm (1.9-4.0) LVDd 5.10 cm (3.5-5.7) Ao Diam 3.55 cm (2.0-3.7) LVDs 3.60 cm (3.5-5.7) IVSd 1.32 cm (0.6-1.1) PWd 0.61 cm (0.6-1.1) EF (Teich) 56.10% FS 29.40% EDV (Teich) 123.80 mL TAPSE 1.57 (<1.7) ESV (Teich) 54.40 mL LV Diastology E Decel Time 153.00 (160-240 msec) E/A Ratio 1.37 MED E' 6.20 (< 7 cm/sec) MED A' 4.80 cm/s E'/MED E' Ratio 12.60 (>14) LAT E' 12.90 (<10 cm/sec) LAT A' 8.60 cm/s E/LAT E' Ratio 6.05 (>14) Aortic Valve AO Peak GR. 4.10 mmHg Mitral Valve MV A Velocity 57.00 (40-130 cm/s) E/A Ratio 1.37 MV Decel. Time 153.00 (160-240 ms) Pulmonary Valve PV Peak Velocity 99.00 (50-150 cm/s) Tricuspid Valve TR P. Velocity 260.00 cm/s RAP Estimate 10.00 mmHg RVSP 37.00 mmHg Left Ventricle The left ventricle is normal size. Left ventricular systolic function is mildly decreased. There is normal left ventricular wall thickness. There is moderate hypokinesis of the basal anterior, septal, anteroseptal, and inferoseptal LV molina. Grade 1 diastolic dysfunction is present. LVEF is 45-50%. Right Ventricle The right ventricle is normal size. Right ventricle is mildly hypokinetic. Atria The left atrium size is normal. The right atrium size is normal. There is no Doppler evidence of interatrial shunt. Aortic Valve The aortic valve opens well. There is no aortic valvular stenosis. No aortic regurgitation is present. Mitral Valve The mitral valve is normal in structure. No evidence of mitral valve stenosis. There is no mitral valve regurgitation noted. Tricuspid Valve The tricuspid valve leaflets are thin and pliable. Trace tricuspid regurgitation. There is insufficient TR jet to estimate RVSP. Pulmonic Valve The pulmonary valve is normal in structure. Trace pulmonic regurgitation. Great Vessels The aortic root is normal in size. The ascending aorta is not well visualized. IVC is normal in size and collapses >50% with inspiration. Pericardium There is no pericardial effusion. Other Information Study Quality: Fair Conclusion Mild reduction in global LV systolic function (LVEF 45-50%). Moderate hypokinesis of the basal anterior, septal, anteroseptal, and inferoseptal LV molina. Grade 1 diastolic dysfunction. Normal RV size with mild reduction in RV systolic function. No significant valvular stenosis or regurgitation. Electronically signed by : Caren Orantes MD 05/03/2023 14:01:36
[2023-05-04] VITALS: BP 126/79; PULSE 73; PULSE 76; RESP 18; TEMP 36.8; O2SAT 95
[2023-05-04 04:00] VITALS: BP 118/70; PULSE 80; PULSE 81; RESP 18; TEMP 36.5; O2SAT 98; BMI 34.1
--- NOTE | 2023-05-04 05:15 | PC.NURSE ---
NO FURTHER C/O MID CHEST BURNING SINCE 2329. TELE MONITORING NSR. VSS/AFEBRILE. DRSG TO RIGHT RADIAL C/D/I.
[2023-05-04 05:47] LABS: POC Glucose,Bedside 164 (70-110)
[2023-05-04 06:40] LABS: Basophils # 0.1 K/mm3 (0-0.2); Basophils % 1.1 % (0.1-2.0); Eosinophils # 0.3 K/mm3 (0.0-0.4); Eosinophils % 2.4 % (0.1-12.0); Hematocrit 43.5 % (42.0-52.0); Hemoglobin 14.8 g/dL (14.1-18.0); Lymphocytes # 3.2 K/mm3 (0.7-4.5); Lymphocytes % 26.7 % (10-50); Mean Corpuscular Hemoglobin 29.7 pg (27.0-31.2); Mean Corpuscular Volume 87.6 fl (80-94); Mean Platelet Volume 8.5 fl (7.4-10.4); Monocytes # 0.7 K/mm3 (0.1-1.0); Monocytes % 5.8 % (1.7-9.3); Neutrophils # 7.7 K/mm3 (1.8-7.8); Neutrophils % 64.1 % (37.0-80.0); Platelet Count 291 K/mm3 (142-424); Red Blood Count 4.97 M/mm3 (4.60-6.20); Red Cell Distribution Width 13.7 % (11.5-17.5)
[2023-05-04 06:50] LABS: Chloride 103 mmol/L (98-107); Potassium 3.8 mmoL/L (3.5-5.1); Sodium 136 mmol/L (136-145)
[2023-05-04 06:53] LABS: Alanine Aminotransferase 37 U/L (12-78); Albumin Level 4.4 g/dl (3.5-5.0); Albumin/Globulin Ratio 1.4 (1.1-1.8); Alkaline Phosphatase 60 U/L (38-126); Anion Gap 11.8 mEq/L (5-15); Aspartate Amino Transferase 33 U/L (17-59); Bilirubin,Total 0.4 mg/dl (0.2-1.3); Blood Urea Nitrogen 12 mg/dl (9-20); Calcium 8.9 mg/dl (8.4-10.2); Carbon Dioxide 25 mmol/L (22.0-30.0); Creatinine Clearance Estimated 261 mL/min (50-200); Estimated Glomerular Filt Rate 156 ml/min (>60); GFR (African American) 189 ML/MIN (>60); Globulin 3.2 g/dL (1.3-3.2); Glucose 163 mg/dl (74-100); Total Protein,Serum 7.6 g/dl (6.3-8.2)
[2023-05-04 06:54] LABS: Magnesium 1.6 mg/dl (1.6-2.3)
--- NOTE | 2023-05-04 07:53 | EXP.DC.SUM ---
General Admission date:: 05/02/23 Discharge date: 05/04/23 HPI HPI HPI: This a 32-year-old male significantr history of heavy smoker, 1-2 PPD over last 17 years. obesity, GERD presenting with chest pressure and shortness of breath. Patient stated shortness of breath started last couple days when he is been exerting himself and associated with pressure in the center of his chest. Sometime patient describe it as burning. Radiates across his chest and up to his neck. Associated with numbness in his jaw. No diaphoresis, nausea or vomiting or neurological deficits otherwise. Admitted for further work up and management. Hospital Course Hospital Course Hospital Course: 32-year-old male significant history of heavy smoker, 1-2 PPD over last 17 years. obesity, GERD presenting with chest pressure and shortness of breath. Patient stated shortness of breath started last couple days when he is been exerting himself and associated with pressure in the center of his chest. On arrival patient been hypertensive. ASA 324mg given as well as GI cocktail. EKG showed unspecific changes. Admitted to medicine for further management. Cardiology consulted, patient taken to [facility] T[facility]. Found to have significant coronary artery disease. Successful stenting. Stable for discharge home with close follow-up. Significant need for lifestyle modification and adjustment and risk factors. Stable to discharge home for further care as an outpatient. Problems addressed as follows during admission -NSTEMI -CAD -Hypertension Patient presented with chest pain. Found to have NSTEMI. Was loaded with aspirin, Plavix. Started on a statin. Taken for left heart cath on 05/03. Impressions as follows: IMPRESSION Successful stenting of the proximal to mid LAD severe disease reduced to 0% with 1 long drug-eluting stent Persistent severe stenosis in the first diagonal artery which is best managed medically at this time Persistent moderate to severe stenosis in a large ramus intermedius Chronically occluded right coronary artery which fills via [id number] collaterals Preserved ejection fraction with elevated LVEDP Patient initiated on Effient 10 mg daily plus aspirin 81 mg daily. Counseled significantly on avoidance of tobacco products. LDL goal less than 55. Initiated on Lipitor 80 mg daily. We will have close follow-up with cardiology, would benefit from stress test in 6 weeks. Cardiology recommended sleep study as an outpatient, will defer to them for scheduling. Would benefit from cardiac rehab. Patient initiated on carvedilol 3.125 mg twice daily and Entresto 24/26 mg twice daily for hypertension and heart failure. -Hyperglycemia -New diagnosis of diabetes A1c elevated at 10.2. Glucose elevated above 300 on admission. Initiated on sliding scale and basal insulin. Patient to continue metformin 500 mg twice daily, Jardiance 10 mg daily, and insulin glargine 20 units nightly. Morning glucose less than 175 on day of discharge. Nutrition consulted, counseled patient on some dietary adjustments and modifications to assist in adhering to a diabetic diet. Will need repeat A1c in 3 months. -Tobacco and marijuana heavy user: Nicotine patch. Prescribed at discharge. Counseled for more than 10 minutes on benefits of smoking cessation and risk for further CAD/heart attack. Patient states understanding. Interested in quitting. -Obesity: Complicates all aspects of care Stable for discharge home. Close follow-up with cardiology. Will establish care with Dr. Venegas as he does not have a PCP at this time. Case management assisted with resources to hopefully get established with insurance. Spent 40 minutes in discharge counseling, documentation, chart review, and direct care with patient. Exam Data for Last 24 hours Vital signs and Labs for Last 24 Hours: Temp Pulse Resp BP Pulse Ox O2 Del Method 97.7 F 81 18 118/70 98 Room Air 05/04/23 04:00 05/04/23 04:00
[2023-05-04 08:00] VITALS: BP 162/95; PULSE 88; RESP 18; TEMP 36.9; O2SAT 98
--- NOTE | 2023-05-04 08:48 | PC.NURSE ---
TECH NOTE; NOTIFIED NURSE OF BLOOD PRESSURE FOR 0800 VITAL SIGNS Dylan JEFFERSON, SRNA
--- NOTE | 2023-05-04 09:51 | EXP.CARD.PN ---
Subjective Subjective Date: 05/04/23 Time: 08:00 Principal diagnosis: NSTEMI Interval history: Patient stable this morning. Reports had some episodes of intermittent chest pain last night that was relieved with nitro. Also reports some palpitations. Denies current chest pain or shortness of breath. Morning labs reviewed Exam Data for Last 24 hours Vital signs and Labs for Last 24 Hours: Temp Pulse Resp BP Pulse Ox O2 Del Method 98.4 F 88 18 162/95 H 98 Room Air 05/04/23 08:00 05/04/23 08:00 05/04/23 08:00 05/04/23 08:00 05/04/23 08:00 05/04/23 08:00 Laboratory Results - last 24 hr 05/03/23 06:10: APTT 27.9 05/03/23 11:41: POC Glucose 232 H 05/03/23 12:36: Activated Clotting Time 303 H* 05/03/23 16:10: POC Glucose 279 H 05/03/23 20:47: POC Glucose 175 H 05/04/23 05:31: POC Glucose 164 H 05/04/23 06:14: WBC 12.0 H, RBC 4.97, Hgb 14.8, Hct 43.5, MCV 87.6, MCH 29.7, MCHC 34.0, RDW 13.7, Plt Count 291, MPV 8.5, Neut % (Auto) 64.1, Lymph % (Auto) 26.7, [place] % (Auto) 5.8, Eos % (Auto) 2.4, Baso % (Auto) 1.1, Neut # (Auto) 7.7, Lymph # (Auto) 3.2, [place] # (Auto) 0.7, Eos # (Auto) 0.3, Baso # (Auto) 0.1, Sodium 136, Potassium 3.8, Chloride 103, Carbon Dioxide 25, Anion Gap 11.8, BUN 12, Creatinine 0.60 L, Estimated Creat Clear 261, Estimated GFR 156, Est GFR ( Amer) 189, Glucose 163 H, Calcium 8.9, Magnesium 1.6 D, Total Bilirubin 0.4, AST 33, ALT 37, Alkaline Phosphatase 60, Total Protein 7.6, Albumin 4.4, Globulin 3.2, Albumin/Globulin Ratio 1.4 I & O for Last 24 hours: Intake & Output 05/01/23 05/02/23 05/03/23 05/04/23 23:59 23:59 23:59 23:59 Intake Total 1125 / 1605 1230 / 1230 Output Total 1001 / 1001 Balance 124 / 604 1230 / 1230 Weight 240 lb 232 lb 5.875 oz 230 lb 5 oz Constitutional Constitutional: no acute distress *Routine Respiratory Exam Respiratory: Present CTA bilaterally and symmetric chest movement *Routine Cardiovascular Exam Cardiovascular: Present RRR, Normal S1 and Normal S2 *Routine Abdominal Exam Abdominal: Present soft and normoactive bowel sounds; Absent tenderness *Routine Extremities Exam Extremities: Present full ROM and normal capillary refill; Absent edema *Routine Skin Exam Skin: Present intact, dry and warm Detailed Neck Exam: Thyroids Thyroid: Absent bruit Progress Note: A&P Assessment and plan (1) Tobacco abuse: Status: Acute (2) Obesity (BMI 30-39.9): Status: Acute (3) Non-ST elevation ND (NSTEMI): Status: Acute (4) Hypertensive urgency: Status: Acute (5) HLD (hyperlipidemia): Status: Acute Assessment and Plan Assessment and Plan for All Diagnoses:: Chest pain NSTEMI -Trop 0.60-1.01 -EKG shows inverted T waves -will proceed with [facility] today. Discussed risks vs. benefits, patient is agreeable. -Patient was loaded with aspirin and plavix. Continue aspirin 81 mg p.o. daily, Plavix 75 mg p.o. daily, coreg 3.125mg po BID and atorvastatin 40 mg p.o. daily -Echo 05/03/2023: EF 45-50, moderate hypokinesis of the basal anterior, septal, anterior septal and inferior septal LV molina. Grade 1 diastolic dysfunction -Patient underwent left heart catheterization yesterday and received stenting to proximal to mid LAD. Patient experienced a mild chest pain last night we will add Imdur 60 mg p.o. daily Palpitations -Patient reports intermittent palpitations throughout the evenings. Recommend continuing beta-sindy and placing patient in 2-week event monitor prior to discharge HFrEF -Mildly reduced ejection fraction of 45 to 50%. -No signs of volume overload noted at this time -Change irbesartan to Entresto 24/26 mg p.o. twice daily. Continue Coreg 3.125 mg p.o. twice daily. Jardiance 10 mg p.o. daily and Aldactone 25 mg p.o. daily. New Dx of DM -Defer to primary service HTN -Entresto and carvedilol LDL -LDL goal < 55. LDL is 44. Started on statin in hospital -Triglycerides 1735, started on statin Tobacco
--- NOTE | 2023-05-04 11:16 | CARE MANAGER ---
Provided family with GoodRx information and told them to contact me if he has issues with getting any of his medications.
[2023-05-04 11:30] LABS: POC Glucose,Bedside 238 (70-110)
--- NOTE | 2023-05-04 11:30 | PC.NURSE ---
courtesy tech note: pt was given belonging bags to collect personal items upon d/c. pt is sitting up in bed and ice water was given upon request.
[2023-05-04 11:54] VITALS: BP 132/99; PULSE 83; RESP 18; O2SAT 97
--- NOTE | 2023-05-04 11:55 | HMH.PHAINT1 ---
Pharmacy Intervention Comments: DISCHARGE MEDICATION COUNSELING PROVIDED. DISCUSSED THE FOLLOWING NEW MEDICATIONS: -ASPIRIN (BLOOD THINNER, DAILY, BLEED/BRUISE RISK/APPEARANCE VS LOCATION, BUMP HEAD = GO TO ER TO RULE OUT HEAD BLEED) -ATORVASTATIN (CHOLESTEROL, AT BEDTIME, MUSCLE PAIN/WEAKNESS POSSIBLE) -PRASUGREL (BLOOD THINNER, DAILY, BLEED/BRUISE RISK/APPEARANCE, BUMP HEAD = GO TO ER, SOB, UPSET STOMACH) -CARVEDILOL (FOR BP/HEART RATE, TWICE DAILY, TAKE WITH FOOD, DIZZINESS, LIGHTHEADEDNESS, LOW BP, SLOWED HEART RATE, FATIGUE POSSIBLE) -JARDIANCE (FOR CORONARY ARTERY DISEASE, DAILY, TAKE WITH BREAKFAST, UPSET STOMACH, UTI POSSIBLE) -LANTUS (FOR DIABETES, INJECT AT BEDTIME, ROTATE INJECTION SITES, LOW BLOOD SUGAR POSSIBLE) -METFORMIN (FOR DIABETES, TWICE DAILY, TAKE WITH FOOD, UPSET STOMACH/DIARRHEA POSSIBLE) -NICOTINE PATCH (SMOKING CESSATION, DAILY, REMOVE OLD PATCH BEFORE PLACING NEW ONE, FOLD PATCH IN HALF UPON DISCARD IN TRASH, REMOVE PRIOR TO IMAGING TO AVOID JAY, SKIN IRRITATION POSSIBLE) -OMEPRAZOLE (FOR REFLUX, DAILY, TAKE 30 MIN BEFORE BREAKFAST, HEADACHE POSSIBLE) -ENTRESTO (FOR BP, TWICE DAILY, COUGH, LOWER LIMB SWELLING, DIZZINESS, LIGHTHEADEDNESS POSSIBLE) -PEN NEEDLES - USE WITH LANTUS PEN, USE A NEW ONE EACH TIME. PATIENT VERBALIZED NO QUESTIONS AT THIS TIME.
--- NOTE | 2023-05-04 11:57 | DIET.NUTRFU ---
RD consulted for diabetic instruction. Patient is new diabetic with A1c of 10%. Plan is to discharge on metformin. Currently drinks 5-8 Mt Dew/day eats fast food often but typically only 1 meal/day. Works during day and drinks most of the day. C/o being thirsty and really does not prefer water. Provided multiple diabetic handouts and gave him multiple meal planning tips. had multiple family members in room, ready to support him during changes. Suggested Mt Dew zero and less breads and chips, encouraged fruit.
--- NOTE | 2023-05-07 16:51 | CARE MANAGER ---
Contacted patient related to hospital discharge. He states he has all his medications and is aware of his follow up appointments. Denies questions or concerns at this time. DEMARCO Stanton
== END 2023-05-04 12:56 | disposition home or self-care (01) | DRG 322 ==
LOC: ER 23:09 → 2ND 23:53
PROVIDERS: Internal Medicine; Nurse Practitioner Family; Admitting Provider Internal Medicine Adolescent Medicine; Emergency Provider Emergency Medicine; Visit Provider Internal Medicine Adolescent Medicine
PROC: 027034Z Dilation of Coronary Artery, One Artery with Drug-eluting Intraluminal Device, Percutaneous Approach (ICD-10-PCS; principal; 2023-05-03 13:15)
DX: I21.4 Non-ST elevation (NSTEMI) myocardial infarction (principal); I50.20 Unspecified systolic (congestive) heart failure; I16.0 Hypertensive urgency; F12.10 Cannabis abuse, uncomplicated; F17.210 Nicotine dependence, cigarettes, uncomplicated; K21.9 Gastro-esophageal reflux disease without esophagitis; E66.9 Obesity, unspecified; Z68.34 Body mass index [BMI] 34.0-34.9, adult; E11.65 Type 2 diabetes mellitus with hyperglycemia; Z71.6 Tobacco abuse counseling; E78.5 Hyperlipidemia, unspecified; I11.0 Hypertensive heart disease with heart failure
CPT/HCPCS: 36415; 71045; 76770; 80053; 80061; 80305; 82962; 83036; 83690; 83735; 84484; 85025; 85347; 85610; 85730; 92928; 93005; 93306; 93458; 99152; 99153; 99285; C1725; C1769; C1874; C9600; J1644; Q9967

== ENCOUNTER → 2023-05-10 14:49 | Outpatient (CLI) | payer SELFPAY ==
[2023-05-10 17:14] LABS: Basophils # 0.2 K/mm3 (0-0.2); Basophils % 1.6 % (0.1-2.0); Eosinophils # 0.2 K/mm3 (0.0-0.4); Eosinophils % 1.5 % (0.1-12.0); Hematocrit 45.6 % (42.0-52.0); Hemoglobin 15.7 g/dL (14.1-18.0); Lymphocytes # 2.6 K/mm3 (0.7-4.5); Lymphocytes % 27.2 % (10-50); Mean Corpuscular HGB Conc 34.4 g/dL (31.8-35.4); Mean Corpuscular Hemoglobin 29.6 pg (27.0-31.2); Mean Corpuscular Volume 86.1 fl (80-94); Mean Platelet Volume 8.1 fl (7.4-10.4); Monocytes # 0.9 K/mm3 (0.1-1.0); Monocytes % 9.5 % (1.7-9.3); Neutrophils # 5.8 K/mm3 (1.8-7.8); Neutrophils % 60.2 % (37.0-80.0); Platelet Count 304 K/mm3 (142-424); Red Cell Distribution Width 13.4 % (11.5-17.5); White Blood Count 9.6 K/mm3 (4.8-10.8)
[2023-05-10 17:26] LABS: Alanine Aminotransferase 59 U/L (12-78); Albumin Level 4.8 g/dl (3.5-5.0); Alkaline Phosphatase 56 U/L (38-126); Anion Gap 18.2 mEq/L (5-15); Aspartate Amino Transferase 48 U/L (17-59); Bilirubin,Direct 0.1 mg/dl (0.0-0.4); Bilirubin,Indirect 0.2 mg/dL (0.0-0.9); Bilirubin,Total 0.3 mg/dl (0.2-1.3); Bilirubin,Unconjugated 0.2 mg/dL (0.0-1.1); Blood Urea Nitrogen 14 mg/dl (9-20); Calcium 9.6 mg/dl (8.4-10.2); Carbon Dioxide 23 mmol/L (22.0-30.0); Chloride 101 mmol/L (98-107); Chol/HDL Ratio 8.2 (1-3.5); Cholesterol 155 mg/dl (140-200); Estimated Glomerular Filt Rate 112 ml/min (>60); GFR (African American) 136 ML/MIN (>60); Glucose 99 mg/dl (74-100); HDL Cholesterol 19 mg/dl (40-60); Magnesium 1.6 mg/dl (1.6-2.3); Potassium 4.2 mmoL/L (3.5-5.1); Sodium 138 mmol/L (136-145); Total Protein,Serum 7.9 g/dl (6.3-8.2)
[2023-05-10 17:32] LABS: Triglycerides 479 mg/dl (30-150)
[2023-05-10 17:38] LABS: Direct LDL Cholesterol 64.98 mg/dL (100-129)
[2023-05-10 17:43] LABS: Free T4 (Free Thyroxine) 1.29 ng/dl (0.78-2.19)
[2023-05-10 17:57] LABS: Thyroid Stimulating Hormone 1.89 uIU/mL (0.465-4.68)
== END ==
LOC: LAB 14:49
PROVIDERS: PCP Internal Medicine; Visit Provider Nurse Practitioner
DX: I25.10 Atherosclerotic heart disease of native coronary artery without angina pectoris (principal); E11.9 Type 2 diabetes mellitus without complications; E78.5 Hyperlipidemia, unspecified; E66.9 Obesity, unspecified; Z68.33 Body mass index [BMI] 33.0-33.9, adult; Z72.0 Tobacco use; Z79.4 Long term (current) use of insulin
CPT/HCPCS: 36415; 80048; 80061; 80076; 83735; 84439; 84443; 85025

== ENCOUNTER 2023-07-13 23:22 | Emergency (ER) | payer SELFPAY ==
--- NOTE | 2023-07-13 23:24 | ECG_ITS ---
APPROVED REPORT Exam: Resting ECG HR:88 bpm ECG Measurements Heart Rate 88 AXES IA 160 P 46 QRSd 82 QRS 67 QT 334 T 50 QTc 380 Conclusion SINUS RHYTHM NORMAL ECG UNCONFIRMED REPORT Electronically signed by : Devin Navarro MD 07/14/2023 10:05:52
[2023-07-13 23:26] VITALS: BP 133/68; PULSE 87; RESP 20; TEMP 36.6; O2SAT 99; BMI 35.0
--- NOTE | 2023-07-13 23:26 | XR_ITS ---
PROCEDURE INFORMATION: Exam: XR Chest Exam date and time: 07/13/2023 11:22 PM Age: 32 years old Clinical indication: Pain; Right-sided; Additional info: R chest pain, SOA TECHNIQUE: Imaging protocol: Radiologic exam of the chest. Views: 2 views. Total images: 2 COMPARISON: CR XR CHEST PORTABLE 05/02/2023 9:55 PM FINDINGS: Lungs: Calcified right upper lobe granuloma. No consolidation. No pulmonary vascular congestion or edema. Pleural spaces: Unremarkable. No pleural effusion. No pneumothorax. Heart/Mediastinum: Unremarkable. No cardiomegaly. No mediastinal widening or hilar enlargement. Bones/joints: Unremarkable. IMPRESSION: No radiographically acute cardiopulmonary process.
--- NOTE | 2023-07-13 23:28 | HMH.EDGENADL ---
Discharge Plan Disposition Patient Disposition: Home, Self-Care Condition: Good Prescriptions Prescriptions: No Action metformin 1,000 mg tablet 1,000 mg PO BID Qty: 60 2RF Ozempic 0.25 mg or 0.5 mg (2 mg/3 mL) pen injector 0.25 mg SQ WEEKLY Qty: 3 0RF Rx Instructions: for 4 weeks aspirin 81 mg tablet,delayed release (DR/EC) 81 mg PO DAILY Qty: 90 2RF atorvastatin 80 mg tablet 80 mg PO HS Qty: 90 2RF carvedilol 3.125 mg tablet 3.125 mg PO BID Qty: 180 2RF Jardiance 10 mg tablet 10 mg PO DAILY Qty: 90 2RF prasugrel 10 mg tablet 10 mg PO DAILY Qty: 90 1RF Entresto 24-26 mg tablet 1 tab PO BID Qty: 180 0RF omeprazole 40 mg capsule,delayed release(DR/EC) 40 mg PO DAILY Qty: 90 0RF spironolactone [Aldactone] 25 mg tablet 25 mg PO DAILY Qty: 90 2RF (DME) pen needle, diabetic [Pen Needle] 31 gauge x 5/16 needle See Rx Instructions .Route Qty: 100 0RF Rx Instructions: As directed Referrals Follow up/Referrals: Provider,Referral, MD [Primary Care Provider] - See instructions Activity Restrictions/Add. Instructions Additional Instructions/Restrictions: You were evaluated in the emergency department today. 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 Continue taking your medications at home as prescribed. It is important that you take all of your medications. Return to the emergency department for any new or worsening symptoms. Clinical Impressions Clinical Impression: Chest pain Instructions Patient Instructions: DI for Atypical Chest Pain Discharge ED Provider: Kaci Reyes General Adult HPI General Chief complaint: Chest Pain Stated complaint: CP Time Seen by Provider: 07/13/23 23:25 History of Present Illness HPI narrative: This patient is a 32-year-old male with a history of type 2 diabetes, CAD with recent [place] status post stenting, hypertension, hyperlipidemia, and GERD presenting to the emergency department for evaluation with concern for intermittent right-sided chest pain that radiates down his right arm. He notes that this started last night. He states that he has had a recent cold/upper respiratory infection, but the chest pain is new. He describes it as a sharp pain that goes down his right arm occasionally. It does not change with respiration. It does not get worse with any exertion, and actually improves with exertion. He states that it feels worse whenever he is sitting down at rest. He cannot think of any injuries and it does not seem to change with any movement. Of note, he has not been able to take his Entresto or Jardiance, as he is not able to afford it and his insurance has not gone through yet. He has been compliant with all of his other medications, including his aspirin and prasugrel. On medical record review, he was admitted here at the end of April and was admitted. He was found to have STEMI and received [id number] to his LAD. Related Data Previous Rx's Medication Instructions Recorded pen needle, diabetic 31 gauge x #100 ea 05/04/2311/21 (Pen Needle) metformin 1,000 mg tablet 1,000 mg PO BID #60 tabs 05/29/23 semaglutide 0.25 mg or 0.5 mg (2 0.25 mg (0.368 mL) SQ WEEKLY #3 mL 05/30/23 mg/3 mL) subcutaneous pen injector (Ozempic) aspirin 81 mg tablet,delayed 81 mg PO DAILY #90 tabs 06/05/23 release atorvastatin 80 mg tablet 80 mg PO HS #90 tabs 06/05/23 carvedilol 3.125 mg tablet 3.125 mg PO BID #180 tabs 06/05/23 empagliflozin 10 mg tablet 10 mg PO DAILY #90 tabs 06/05/23 (Jardiance) omeprazole 40 mg capsule,delayed 40 mg PO DAILY #90 caps 06/05/23 release prasugrel 10 mg tablet 10 mg PO DAILY #90 tabs 06/05/23 sacubitril 24 mg-valsartan 26 mg 1 tab PO BID #180 tabs 06/05/23 tablet (Entresto) spironolactone 25 mg tablet 25 mg PO DAILY #90 tabs 06/05/23 (Aldactone) Allergies Allergy/AdvReac Type Severity Reaction Status Date / Time No Known Allergies Allergy Verified 05/29/23 13:49 [facility] Disclaimer: The information contained in this section may have been updated after the patient was seen, as this information can be updated by other users. Medical History DJD (degenerative joint disease), lumbar Social History Smoking Status: Former smoker tobacco type: cigarettes alcohol intake: never substance use type: marijuana current occupational status: employed Travel in the last 8 weeks: None ROS Obtained: Yes All systems reviewed & no additional complaints except as documented Physical Exam General General appearance: alert and in no apparent distress Head Head exam: atraumatic and normocephalic Eye Eye exam: Present normal appearance, PERRL and EOMI ENT ENT exam: Present normal exam, normal oropharynx, mucous membranes moist and normal external ear exam Neck Neck exam: Present normal inspection, full ROM and trachea midline; Absent tenderness Chest Chest inspection: Present normal inspection and symmetric chest wall rise; Absent tenderness Respiratory Respiratory exam: Present normal lung sounds bilaterally; Absent respiratory distress, wheezes, stridor or accessory muscle use Cardiovascular Cardiovascular exam: Present regular rate and normal rhythm Abdominal Exam Abdominal exam: Present soft; Absent distention, tenderness or guarding Extremities Exam Extremities exam: Present normal inspection, full ROM and normal capillary refill; Absent tenderness or edema Back Exam Back exam: Present normal inspection and full ROM; Absent tenderness Neurological Exam Neurological exam: Present alert, oriented X3, CN II-XII intact and normal gait; Absent motor sensory deficit Psychiatric Psychiatric exam: Present normal affect and normal mood Skin Skin exam: Present warm and dry Medical Decision Making Medical Records Medical records reviewed: Yes I reviewed the patient's medical records. [place] Inquiry Pt receiving controlled substance: No Vital Signs: 07/13/23 23:26 07/13/23 23:31 Temperature 97.9 F Temperature Source Oral Pulse Rate 87 Pulse Rate [Radial] 87 Respiratory Rate 20 Blood Pressure [Right Arm] 133/68 Blood Pressure Mean [Right Arm] 89 Blood Pressure Position [Right Arm] Sitting 02 Sat by Pulse Oximetry 99 Oxygen Delivery Method Room Air Lab Data Lab results reviewed: Yes I reviewed the patient's lab results. Lab Results 07/13/23 23:40: WBC 10.0, RBC 5.06, Hgb 14.4, Hct 44.3, MCV 87.6, MCH 28.4, MCHC 32.4, RDW 13.5, Plt Count 326, MPV 8.0, Neut % (Auto) 46.3, Lymph % (Auto) 43.0, [place] % (Auto) 6.1, Eos % (Auto) 3.2, Baso % (Auto) 1.4, Neut # (Auto) 4.6, Lymph # (Auto) 4.3, [place] # (Auto) 0.6, Eos # (Auto) 0.3, Baso # (Auto) 0.1, Sodium 141, Potassium 3.7, Chloride 103, Carbon Dioxide 27, Anion Gap 14.7, BUN 15, Creatinine 1.00, Estimated Creat Clear 152, Estimated GFR 87, Est GFR ( Amer) 105, Glucose 115 H, Hemoglobin A1c 7.2 H D, Calcium 9.0, Total Bilirubin 0.5, AST 28, ALT 34, Alkaline Phosphatase 54, Troponin I < 0.01, Total Protein 7.7, Albumin 4.5, Globulin 3.2, Albumin/Globulin Ratio 1.4, Lipase 105 07/14/23 01:41: Troponin I < 0.01 07/13/23 23:40 07/13/23 23:40 Orders (Tests/Meds): ED MEDICATIONS Discontinued Medications Generic Name Dose Route Start Last Admin Trade Name Freq PRN Reason Stop Dose Admin Aspirin 324 mg 07/13/23 23:27 07/13/23 23:34 Aspirin 81mg Chewable Tablet PO 07/13/23 23:28 324 mg ONCE ONE Administration ORDERS Category Date Time Status XR chest 2V Stat Exams 07/13/23 23:26 Completed Complete Blood Count Auto Diff Stat Lab 07/13/23 23:40 Completed Comprehensive Metabolic Panel Stat Lab 07/13/23 23:40 Completed Hemoglobin A1C Stat Lab 07/13/23 23:40 Completed Lipase Stat Lab 07/13/23 23:40 Completed Troponin I Q3H Lab 07/14/23 01:41 Completed Troponin I Q3H Lab 07/14/23 05:30 Ordered Troponin I Stat Lab 07/13/23 23:40 Completed ECG Data Tracing #1: I reviewed this ECG and interpreted as documented below: Normal sinus rhythm with a ventricular rate of [address] changes concerning for ischemia. Improvement noted from prior EKG from last admission. ECG initial impression date: 07/13/23 ECG initial impression time: 23:26 HEART Score History (anamnesis): Moderately suspicious ECG: Normal Age: <45 years Risk factors: Atherosclerosis history Troponin: </= normal limit HEART Score: 3 Medical Decision Narrative: In summary, this patient is a 32-year-old male presenting to the Emergency Department for evaluation of chest pain. Differential diagnoses considered include but are not limited to ACS, dysrhythmia, costochondritis, GERD, pleuritis, pneumonia, PE. Ruling out the most morbid conditions drove assessment. It should be noted patient's history includes CAD, hypertension, hyperlipidemia, and type 2 diabetes which may or may not be at goal therapy. This complicates all aspects of care by increasing patient's risk for morbidity. I reviewed patient's past medical records and noted admission and cardiac catheterization status post tenting as per HPI. On exam, the patient is well-appearing. His vitals are reassuring on cardiac telemetry. Cardiopulmonary exam is reassuring. He is PERC negative for pulmonary embolus. He reports compliance with his dual antiplatelet therapy, though he has not been able to take his Entresto or Jardiance. Blood pressures within acceptable range here. Workup included CBC, CMP, troponin, chest x-ray, and EKG. He was given oral aspirin. EKG is normal with no acute ST changes concerning for ischemia. I independently interpreted chest x-ray prior to the radiologist read and noted no obvious focal consolidation, pneumothorax, or other concern. Please see their read for final interpretation. Labs were obtained that demonstrated no acutely concerning abnormalities with negative initial troponin. Second troponin is pending at this time. Patient was placed in ED observation status at 00 10 for serial troponins to determine whether or not the patient would be appropriate for discharge will require admission for further workup of his chest pain. On reassessment, patient is resting comfortably with reassuring vital signs on cardiac telemetry. Second troponin resulted at 0210 and was also negative. 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 He was given very strict return precautions and instructions to take all of his medications as prescribed. He was discharged in stable condition after all questions were answered. ED observation status totaled 2 hours. I had a [id number] visit with the patient when providing discharge instructions. The total time involved in discharging this patient was less than 30 minutes. He Critical Care Critical Care Time Critical Care Time: No
[2023-07-13 23:30] VITALS: BP 126/77; PULSE 83; O2SAT 98
[2023-07-13 23:31] VITALS: PULSE 87
[2023-07-13] MEDS: ASPIRIN 81MG CHEWABLE TABLET 324 MG PO (23:34)
--- NOTE | 2023-07-13 23:35 | PC.NURSE ---
patient back from [facility] at this time
[2023-07-13 23:49] LABS: Basophils # 0.1 K/mm3 (0-0.2); Basophils % 1.4 % (0.1-2.0); Eosinophils # 0.3 K/mm3 (0.0-0.4); Eosinophils % 3.2 % (0.1-12.0); Hematocrit 44.3 % (42.0-52.0); Hemoglobin 14.4 g/dL (14.1-18.0); Lymphocytes # 4.3 K/mm3 (0.7-4.5); Mean Corpuscular HGB Conc 32.4 g/dL (31.8-35.4); Mean Corpuscular Hemoglobin 28.4 pg (27.0-31.2); Mean Corpuscular Volume 87.6 fl (80-94); Monocytes # 0.6 K/mm3 (0.1-1.0); Monocytes % 6.1 % (1.7-9.3); Neutrophils # 4.6 K/mm3 (1.8-7.8); Neutrophils % 46.3 % (37.0-80.0); Platelet Count 326 K/mm3 (142-424); Red Blood Count 5.06 M/mm3 (4.60-6.20); Red Cell Distribution Width 13.5 % (11.5-17.5)
[2023-07-13 23:53] LABS: Chloride 103 mmol/L (98-107); Sodium 141 mmol/L (136-145)
[2023-07-13 23:54] LABS: Potassium 3.7 mmoL/L (3.5-5.1)
[2023-07-13 23:56] LABS: Alanine Aminotransferase 34 U/L (12-78); Albumin Level 4.5 g/dl (3.5-5.0); Albumin/Globulin Ratio 1.4 (1.1-1.8); Alkaline Phosphatase 54 U/L (38-126); Aspartate Amino Transferase 28 U/L (17-59); Bilirubin,Total 0.5 mg/dl (0.2-1.3); Blood Urea Nitrogen 15 mg/dl (9-20); Creatinine Clearance Estimated 152 mL/min (50-200); Estimated Glomerular Filt Rate 87 ml/min (>60); GFR (African American) 105 ML/MIN (>60); Globulin 3.2 g/dL (1.3-3.2); Glucose 115 mg/dl (74-100); Lipase 105 U/L (23-300); Total Protein,Serum 7.7 g/dl (6.3-8.2)
[2023-07-14] VITALS: BP 115/55; PULSE 82; RESP 15; O2SAT 96
[2023-07-14 00:05] LABS: Hemoglobin A1C 7.2 % (4.0-6.0)
[2023-07-14 00:09] LABS: Troponin I < 0.01 ng/ml (0.00-0.034)
--- NOTE | 2023-07-14 00:09 | PC.NURSE ---
rounded on patient, no needs at this time. call light within reach
[2023-07-14 00:31] VITALS: BP 107/66; PULSE 86; RESP 12; O2SAT 95
[2023-07-14 00:42] LABS: Anion Gap 14.7 mEq/L (5-15); Carbon Dioxide 27 mmol/L (22.0-30.0)
[2023-07-14 01:00] VITALS: BP 119/81; PULSE 75; RESP 18; O2SAT 95
[2023-07-14 01:31] VITALS: BP 107/69; RESP 17
[2023-07-14 02:07] LABS: Troponin I < 0.01 ng/ml (0.00-0.034)
[2023-07-14 02:17] VITALS: BP 100/75; PULSE 78; RESP 14; TEMP 36.7
== END 2023-07-14 02:18 | disposition home or self-care (01) ==
PROVIDERS: Emergency Provider Emergency Medicine
DX: R07.9 Chest pain, unspecified (principal); M79.601 Pain in right arm; I25.10 Atherosclerotic heart disease of native coronary artery without angina pectoris; I10 Essential (primary) hypertension; E78.5 Hyperlipidemia, unspecified; I25.2 Old myocardial infarction; E11.9 Type 2 diabetes mellitus without complications; Z87.891 Personal history of nicotine dependence
CPT/HCPCS: 71046; 80053; 83036; 83690; 84484; 85025; 93005; 99285

== ENCOUNTER 2023-08-23 13:49 | Outpatient (CLI) | payer OTHER, SELFPAY ==
--- NOTE | 2023-08-23 | CA_ITS ---
APPROVED REPORT Exam: Exercise Treadmill Technologist: Diana Grijalva, Ht: 5 ft 8 in Wt: 229 lbs BSA: 2.17 m2 HR: 86 bpm BP: 126/77 mmHg Rhythm: NSR, ST-T abns inferiorly Medical History Medications: Omeprazole,,,,, Aspirin,,,,, Metformin,,,,, Atorvastatin,,,,, Carvedilol,,,,, Aldactone,,,,, JaRDiance,,,,, EnTRESTO,,,,, Prasugel,,,,, Lancets,,,,, Ozempic,,,,, Cardiac Risk Factors: , SmokingHyperlipidemia, Diabetes (insulin), FHX of CAD Stress Test Details Test: Josue HR Resting HR: 96 bpm Max Heart Rate (APMHR): 188 bpm Max HR Achieved: 162 bpm Target HR (85% APMHR): 160 bpm % of APMHR: 86 Recovery HR: 111 bpm HR response to stress: Normal HR response to stress BP Resting BP: 127.0/76 mmHg Max BP: 212/86 mmHg Recovery BP: 150.0/81.0 mmHg BP response to stress: Abnormal hypertensive response to stress. ECG Resting ECG: NSR, ST-T abns inferiorly Stress EC mm horizontal ST depression Arrhythmia: Occasional PVCs Recovery ECG: Return to baseline within 5 minutes of recovery Recovery Arrhythmia: PVCs Clinical Exercise duration: 09:15 min Highest Stage Achieved: Exercise capacity: 10.1 METs Overall Exercise Capacity for Age: Average Stress ECG Conclusion The patient was able to exercise for a total of 9 minutes, 15 seconds. He achieved a total of 10.1 METS. He has average exercise capacity compared to age and sex matched peers. He has normal HR, but exaggerated hypertensive BP, response to exercise. No CP noted. Ectopy: Occasional PVC noted. ST changes: [address] depression Conclusion: Average exercise capacity. Hypertensive BP response to exercise. ECG stress test findings suggestive of ischemia. Further evaluation with stress testing including imaging (i.e. nuclear stress testing) in the setting of known residual atherosclerotic disease without revascularization on recent [facility] and evidence of ischemia on ECG stress test. Test Summary REST . . . . . . . Sitting REST . . . . . . . Sitting REST . . . . . . . Standing REST 03:22 0.0 0.0 96 . 127/ 76 . . Stage 1 01:00 10.0 1.7 104 . . . . Stage 1 02:00 10.0 1.7 113 . . . . Stage 1 03:00 10.0 1.7 118 . 180/ 86 . . Stage 2 01:00 12.0 2.5 121 . . . . Stage 2 02:00 12.0 2.5 122 . . . . Stage 2 03:00 12.0 2.5 133 . 188/ 86 . . Stage 3 01:00 14.0 3.4 133 . . . . Stage 3 02:00 14.0 3.4 140 . 212/ 86 . . Stage 3 03:00 14.0 3.4 152 . 212/ 86 . . Stage 4 00:15 16.0 4.2 160 . . . Stop exercise at 09:15 RECOVERY 01:00 0.0 0.0 127 . . . . RECOVERY 02:00 0.0 0.0 108 . 150/ 81 . . RECOVERY 03:00 0.0 0.0 98 . 150/ 81 . . RECOVERY 04:00 0.0 0.0 101 . 138/ 63 . . RECOVERY 05:00 0.0 0.0 102 . 128/ 76 . . RECOVERY 05:19 0.0 0.0 103 . 128/ 76 . . Electronically signed by : Caren Orantes MD 09/02/2023 02:32:25
--- NOTE | 2023-08-23 13:51 | CA_ITS ---
APPROVED REPORT EXAM: Comprehensive 2D, Doppler, and color-flow Echocardiogram Quality Worker: Maureen Pemberton RVT Ht: 5 ft 8 in Wt: 229lbs BSA: 2.17 BP: 129/84 mmHg Indications: CAD,DM,SMOKER,HLD 2D Dimensions LA Volume 22.60 mL LA Volume Index 10.41 mL/m2 (M/F) 16-34 M-Mode Dimensions RVDd 3.03 cm (0.9-2.6) LA Diam 3.70 cm (1.9-4.0) LVDd 4.88 cm (3.5-5.7) LVDs 2.50 cm (3.5-5.7) IVSd 0.87 cm (0.6-1.1) PWd 0.38 cm (0.6-1.1) EF (Teich) 80.00% FS 48.80% EDV (Teich) 111.70 mL TAPSE 2.81 (<1.7) ESV (Teich) 22.30 mL LV Diastology E Decel Time 150 (160-240 msec) E/A Ratio 1.2 Aortic Valve YURIY Index 1.94 cm2/m2 AoV Peak Elijah. 113.0 (50-130 cm/s) AO Peak GR. 5.10 mmHg AO Mean GR. 3.00 (<5 mmHg) AO VTI 19.3 (18-25 cm) YURIY (VTI) 4.31 (2.5-4.5 cm2) Mitral Valve MV E Max Elijah. 67.0 (40-130 cm/s) MV A Velocity 56.0 (40-130 cm/s) E/A Ratio 1.20 MV PHT 44.0 ms Pulmonary Valve PV Peak Velocity 87.0 (50-150 cm/s) Tricuspid Valve TR P. Velocity 129.00 cm/s RAP Estimate 10.00 mmHg RVSP 16.60 mmHg Left Ventricle The left ventricle is normal size. The left ventricular systolic function is normal. The left ventricular ejection fraction is within the normal range. There is normal left ventricular wall thickness. There is mild hypokinesis of the basal anteroseptal LV wall. The left ventricular diastolic function is normal. LVEF is 55%. Right Ventricle The right ventricle is normal size. The right ventricular systolic function is normal. Atria The left atrium size is normal. The right atrium size is normal. There is no Doppler evidence of interatrial shunt. Aortic Valve The aortic valve opens well. There is no aortic valvular stenosis. No aortic regurgitation is present. Mitral Valve The mitral valve is normal in structure. No evidence of mitral valve stenosis. There is no mitral valve regurgitation noted. Tricuspid Valve The tricuspid valve leaflets are thin and pliable. Trace tricuspid regurgitation. There is insufficient TR jet to estimate RVSP. Pulmonic Valve The pulmonary valve is normal in structure. Trace pulmonic regurgitation. Great Vessels The aortic root is normal in size. The ascending aorta is normal in size. IVC is normal in size and collapses >50% with inspiration. Pericardium There is no pericardial effusion. Other Information Study Quality: Fair Conclusion Normal biventricular systolic function. Mild hypokinesis of the anteroseptal LV wall. No significant valvular stenosis or regurgitation. Electronically signed by : Caren Orantes MD 08/27/2023 10:41:12
== END 2023-08-23 23:59 ==
LOC: RT 13:50
PROVIDERS: PCP Internal Medicine; Visit Provider Internal Medicine
DX: I25.10 Atherosclerotic heart disease of native coronary artery without angina pectoris (principal)
CPT/HCPCS: 93017; 93018; 93306

== ENCOUNTER 2023-08-29 06:54 | Outpatient (CLI) | payer OTHER, SELFPAY ==
--- NOTE | 2023-08-29 | CA_ITS ---
APPROVED REPORT Exam: Exercise Treadmill Technologist: Diana Grijalva Ht: 5 ft 8 in Wt: 229 lbs BSA: 2.17 m2 HR: 84 bpm BP: 150/67 mmHg Rhythm: NSR, PVC, ST-T abns inferiorly, early repolarization changes in anterior lateral leads Indications: Abn GXT, PALPITATIONS Medical History Medications: Omeprazole,,,,, Aspirin,,,,, Metformin,,,,, Atorvastatin,,,,, Carvedilol,,,,, Aldactone,,,,, Prasugrel,,,,, EnTRESTO,,,,, EMpagliflozin,,,,, Ozempic,,,,, Cardiac Risk Factors: HTN, Diabetes (non-insulin), Smoking Stress Test Details Test: Josue HR Resting HR: 91 bpm Max Heart Rate (APMHR): 188 bpm Max HR Achieved: 179 bpm Target HR (85% APMHR): 160 bpm % of APMHR: 95 Recovery HR: 118 bpm HR response to stress: Normal HR response to stress BP Resting BP: 144.0/82 mmHg Max BP: 166/80 mmHg Recovery BP: 165.0/100.0 mmHg BP response to stress: Normal blood pressure response to stress. ECG Resting ECG: NSR, PVC, ST-T abns inferiorly, early repolarization changes in anterior lateral leads Stress EC mm upsloping ST depression Arrhythmia: Occasional PVCs Recovery ECG: Return to baseline within 3 minutes of recovery. Recovery Arrhythmia: None Clinical Exercise duration: 10:00 min Highest Stage Achieved: Exercise capacity: 12.8 METs Overall Exercise Capacity for Age: Average Stress ECG Conclusion The patient was able to exercise for a total of 10 minutes, 0 seconds. He achieved a total of 12.8 METS. He has average exercise capacity compared to age and sex matched peers. He has normal HR and BP response to exercise. No CP noted. Nausea and vomitting immediately after test. Ectopy: Occasional PVCs ST changes: [address] depression Conclusion: Average exercise capacity. ECG findings suggestive of possible ischemia. Myoview images are reported separately. Test Summary REST . . . . . . . Sitting REST . . . . . . . Standing REST 03:52 0.0 0.0 91 . 144/ 82 . . Stage 1 01:00 10.0 1.7 103 . . . . Stage 1 02:00 10.0 1.7 110 . . . . Stage 1 03:00 10.0 1.7 111 . 154/ 74 . . Stage 2 01:00 12.0 2.5 113 . . . . Stage 2 02:00 12.0 2.5 119 . . . . Stage 2 03:00 12.0 2.5 113 . 166/ 80 . . Stage 3 01:00 14.0 3.4 131 . . . . Stage 3 02:00 14.0 3.4 140 . . . . Stage 3 03:00 14.0 3.4 152 . . . . Stage 4 01:00 16.0 4.2 167 . . . Stop exercise at 10:00 RECOVERY 01:00 0.0 0.0 132 . . . . RECOVERY 02:00 0.0 0.0 113 . . . . RECOVERY 03:00 0.0 0.0 116 . . . . RECOVERY 04:00 0.0 0.0 114 . . . . RECOVERY 05:00 0.0 0.0 114 . 165/100 . . RECOVERY 06:00 0.0 0.0 111 . 144/ 87 . . RECOVERY 07:00 0.0 0.0 109 . 144/ 87 . . RECOVERY 07:28 0.0 0.0 111 . 141/ 92 . . Electronically signed by : Caren Orantes MD 08/29/2023 11:25:47
--- NOTE | 2023-08-29 07:05 | NM_ITS ---
APPROVED REPORT Exam: Nuclear Stress Test Indication: cad, h/o mi, htn, dm, hyperlipidemia, tob use, fm hx Patient Location: Outpatient Stress Tech: Diana Grijalva NM Tech:Elif WhitmoreMARY JANE RT (R)(N)(M) Ht: 5 ft 8 in Wt: 225 lbs HR: 84 bpm BP: 150/67 mmHg BSA: 2.15 m2 Rhythm: NSR TID: 1.23 BMI: 34.2 History: cad, h/o mi, htn, dm, hyperlipidemia, tob use, fm hx Procedure: Patient exercised on Josue protocol 10:00 minutes and sec, resting heart rate 84 bpm, resting blood pressure 150/67 mmHg, with exercise maximum heart rate achived was 168 bpm which is 89 % of the maximum predicted heart rate and blood pressure was 166/80 mmHg. Test was stopped due to fatigue, and vomiting. Patient denied any complaint of chest pain. Patient has average exercise capacity, achieved 12.8 METs of workload on treadmill, the blood pressure response to exercise was normal. Cardiac Stress and Resting SPECT Images: Cardiac Stress and Resting SPECT images were obtained using technetium 99m Myoview 31.2 mCi stress and 10.14 mCi at rest. Resting and stress imaging in supine and prone positions demonstrate a medium sized, moderate, reversible perfusion defect in the mid to distal anterior LV wall. There is also a medium sized, moderate, fixed perfusion defect in the basal to mid inferior LV wall. There is increased transient ischemic dilatation ratio (TID 1.23), suggestive of possible multivessel disease or balanced ischemia. Gated imaging demonstrates normal global LV systolic function. There is moderate hypokinesis of the inferior LV wall. There is mild hypokinesis of the distal anterior LV wall. LVEF is calculated at 56%. Conclusion: Medium sized, moderate, reversible perfusion defect in the mid to distal anterior LV wall. There is also medium sized, moderate, fixed perfusion defect in the basal to mid inferior LV wall. There is increased transient ischemic dilatation ratio (TID 1.23), suggestive of possible multivessel disease or balanced ischemia. Gated imaging demonstrates normal global LV systolic function. There is severe hypokinesis of the inferior LV wall. There is mild hypokinesis of the anterior LV wall. LVEF is calculated at 56%. Electronically signed by : Caren Orantes MD 08/29/2023 11:29:49
[2023-08-29] MEDS: SODIUM CHLORIDE 0.9% 10ML SYR (RAD ONLY) 10 ML IV ×2 (10:10)
[2023-08-29] MEDS: ISOTOPE MYOVIEW (PER STUDY) 1 DOSE IV (10:10)
== END 2023-08-29 23:59 ==
LOC: RAD 06:54
PROVIDERS: PCP Internal Medicine; Visit Provider Internal Medicine
DX: I25.10 Atherosclerotic heart disease of native coronary artery without angina pectoris (principal); R00.2 Palpitations; R94.39 Abnormal result of other cardiovascular function study
CPT/HCPCS: 78452; 93017; 93018; A9502

== ENCOUNTER 2023-09-25 08:47 | Day surgery (SDC) | payer OTHER, SELFPAY ==
[2023-09-25] VITALS (15 sets, daily range): BP systolic 94–142; BP diastolic 65–87; PULSE 57–98; RESP 16–18; TEMP 36.1–36.3; O2SAT 92–100; BMI 33.4
--- NOTE | 2023-09-25 07:03 | IR_ITS ---
APPROVED REPORT Patient Location: Outpatient PROCEDURES Left heart catheterization Left ventriculogram Selective coronary angiogram Drug-eluting stent deployment to the mid circumflex artery Drug-eluting stent deployment to the proximal ramus intermedius INDICATION Coronary artery disease, Abnormal Myoview, Angina pectoris Informed consent was obtained prior to the procedure. COMPLICATIONS NONE Estimated Blood Loss: LESS THAN 10 ML TECHNIQUE One percent lidocaine used to anesthetize the right anterior aspect of the wrist. The right radial artery was accessed via the Seldinger technique. A 6 Mongolian sheath was placed in the right radial artery. 2.5 mg of Verapamil, 800 mcg of nitroglycerin, 1mg Lidocaine and 5000 U Heparin were given through the arterial sheath. The papa catheter was also used to perform left heart catheterization, left ventriculogram and selective coronary angiogram. At the end the diagnostic angiogram therapeutic heparin was administered giving a therapeutic ACT. I reviewed the previous angiogram which demonstrated interval progression of a circumflex artery stenosis as well as worsening of the ramus intermedius. A JL 3 guide catheter was placed in left main artery followed by wire placed on the circumflex artery. A 3 mm x 22 mm Engelhard frontier stent was deployed at 16 meena reducing the severe stenosis to 0%. TRACY-3 flow was present before and after the procedure. Following this a choice floppy wire was placed into the ramus intermedius where a 2.25 x 22 mm Anthony frontier stent was deployed at 18 meena reducing the severe stenosis to 0%. TRACY-3 flow was present before and after the procedure. At the end of procedure the apparatus was removed the sheath was removed and hemostasis was achieved using TR banding patient was transferred to the postop holding in stable condition ANGIOGRAPHIC RESULTS The left main artery Normal The left anterior descending artery Has stents in the proximal segment which are widely patent free of in-stent restenosis with excellent proximal distal transitioning The circumflex artery Is a dominant vessel and gives rise to a medium size ramus intermedius which has a proximal concentric 90% stenosis. The circumflex artery has a mid vessel 70 to 80% stenosis and supplies a large first obtuse marginal artery The right coronary artery Nondominant and has severe proximal and mid vessel 90 to 95% stenoses. The distal vessel fills via left to right collaterals The LEIVA ventriculogram reveals Normal 60% The left ventricular end-diastolic pressure 25 mmHg IMPRESSION Coronary artery disease as described above Successful stent to the mid circumflex artery severe disease reduced to 0% with 1 drug-eluting stent Successful stent to the proximal ramus intermedius severe disease reduced to 0% with 1 drug-eluting stent Persistently subtotally occluded right coronary artery which fills distally via left to right collaterals Normal ejection fraction Elevated LVEDP PLAN 1. Dual antiplatelet therapy 2. Aggressive risk factor modification 3. LDL less than 55 to achieve that high intensity statin 4. Recommend close follow-up with consideration to perform regular noninvasive stress test given the young age and aggressive nature of the coronary disease 5. Cardiac rehabilitation 6. Avoidance of tobacco products Electronically signed by : Papito Davenport MD 09/25/2023 11:27:07
[2023-09-25 09:23] LABS: Anion Gap 13.9 mEq/L (5-15); Calcium 9.3 mg/dl (8.4-10.2); Carbon Dioxide 25 mmol/L (22.0-30.0); Chloride 107 mmol/L (98-107); Glucose 167 mg/dl (74-100); Potassium 3.9 mmoL/L (3.5-5.1); Sodium 142 mmol/L (136-145)
[2023-09-25 09:29] LABS: Blood Urea Nitrogen 18 mg/dl (9-20); Creatinine Clearance Estimated 166 mL/min (50-200); Estimated Glomerular Filt Rate 98 ml/min (>60); GFR (African American) 118 ML/MIN (>60)
[2023-09-25 09:32] LABS: Basophils # 0.2 K/mm3 (0-0.2); Basophils % 1.6 % (0.1-2.0); Eosinophils # 0.4 K/mm3 (0.0-0.4); Hematocrit 48.3 % (42.0-52.0); Hemoglobin 15.8 g/dL (14.1-18.0); Lymphocytes # 2.8 K/mm3 (0.7-4.5); Lymphocytes % 23.8 % (10-50); Mean Corpuscular HGB Conc 32.7 g/dL (31.8-35.4); Mean Corpuscular Hemoglobin 29.6 pg (27.0-31.2); Mean Corpuscular Volume 90.5 fl (80-94); Mean Platelet Volume 7.7 fl (7.4-10.4); Monocytes # 0.7 K/mm3 (0.1-1.0); Monocytes % 5.7 % (1.7-9.3); Neutrophils # 7.7 K/mm3 (1.8-7.8); Neutrophils % 65.9 % (37.0-80.0); Platelet Count 395 K/mm3 (142-424); Red Blood Count 5.34 M/mm3 (4.60-6.20); Red Cell Distribution Width 13.6 % (11.5-17.5); White Blood Count 11.7 K/mm3 (4.8-10.8)
[2023-09-25] MEDS: NITROGLYCERIN 800MCG/8ML SYR (CATH LAB) 800 MCG IA (10:41)
[2023-09-25] MEDS: VERAPAMIL 2.5MG/ML 2ML VIAL 2.5 MG IV (10:41)
[2023-09-25] MEDS: diphenhydrAMINE 50MG/ML VIAL 50 MG IV (10:41)
[2023-09-25] MEDS: HEPARIN 1,000 UNITS/ML 10ML VIAL (CATH LAB) 10000 UNIT IV ×2 (10:41→11:00)
[2023-09-25] MEDS: 0.9 % SODIUM CHLORIDE 500 ML 25 ML IV (10:41)
[2023-09-25] MEDS: HEPARIN 1,000 UNITS/500ML NS (CATH LAB) 3000 UNIT IV (10:41)
[2023-09-25] MEDS: LIDOCAINE 1% 10ML MDV 20 ML IJ (10:41)
[2023-09-25] MEDS: FENTANYL 100MCG/2ML VIAL 50 MCG IV (11:16)
[2023-09-25] MEDS: MIDAZOLAM HCL 1MG/1ML 5ML VIAL 1 MG IV (11:17)
[2023-09-25] MEDS: IOPAMIDOL-370 (76%);100ML BOTTLE 130 ML IV (14:41)
[2023-09-25 14:43] LABS: CATHL Activated Clotting Time 343 SEC (74-125)
== END 2023-09-25 15:30 | disposition home or self-care (01) ==
LOC: CATHLAB 08:47
PROVIDERS: PCP Internal Medicine; Visit Provider Internal Medicine
DX: I25.118 Atherosclerotic heart disease of native coronary artery with other forms of angina pectoris (principal); Z79.899 Other long term (current) drug therapy; E11.9 Type 2 diabetes mellitus without complications; Z79.84 Long term (current) use of oral hypoglycemic drugs; Z87.891 Personal history of nicotine dependence; E78.5 Hyperlipidemia, unspecified; I25.2 Old myocardial infarction
CPT/HCPCS: 80048; 85025; 85347; 92928; 93458; 99152; 99153; C1725; C1769; C1876; C9600; J1644; Q9967

== ENCOUNTER 2023-10-25 10:09 | Outpatient (CLI) | payer OTHER, SELFPAY ==
[2023-10-25 19:21] LABS: Creatinine,Urine Random 113 mg/dL (Not Estab.)
[2023-10-25 19:24] LABS: Microalbumin/Creatinine Ratio 65.4
== END 2023-10-25 23:59 ==
LOC: LAB.DROPOF 10-26 10:10
PROVIDERS: PCP Internal Medicine; Visit Provider Internal Medicine
DX: E11.9 Type 2 diabetes mellitus without complications (principal)
CPT/HCPCS: 82043; 82570; 83036

== ENCOUNTER 2023-12-06 11:49 | Emergency (ER) | payer OTHER, SELFPAY ==
[2023-12-06 12:00] VITALS: BP 135/75; PULSE 122; RESP 20; TEMP 37.4; O2SAT 99; BMI 32.8
--- NOTE | 2023-12-06 12:10 | EXP.UTC ---
Discharge Plan Disposition Patient Disposition: Home, Self-Care Condition: Good Prescriptions Prescriptions: New penicillin V potassium 500 mg tablet 500 mg PO BID Qty: 20 0RF ondansetron 4 mg tablet,disintegrating 4 mg PO Q8H PRN (Reason: nausea and vomiting) Qty: 10 0RF No Action (DME) Blood Glucose Test Strip See Rx Instructions .Route Qty: 50 5RF Rx Instructions: As directed (DME) lancets Misc See Rx Instructions .Route Qty: 200 0RF Rx Instructions: As directed (DME) lancets [OneTouch Delica Plus Lancet] 33 gauge misc See Rx Instructions .ROUTE .MEDSUPPLY Qty: 100 Patient Comments: USE DIRECTED TO test blood sugar Rx Instructions: As directed (DME) blood-glucose meter [OneTouch Verio Flex meter] [facility] [place] See Rx Instructions .ROUTE .MEDSUPPLY Qty: 1 Patient Comments: USE DIRECTED Rx Instructions: As directed (DME) pen needle, diabetic [Pen Needle] 31 gauge x 5/16 needle See Rx Instructions .Route Qty: 100 0RF Rx Instructions: As directed atorvastatin 80 mg tablet 80 mg PO DAILY Patient Comments: TAKE ONE TABLET BY MOUTH EVERY DAY AT BEDTIME aspirin 81 mg tablet,delayed release (DR/EC) 81 mg PO DAILY Patient Comments: TAKE ONE TABLET BY MOUTH EVERY DAY spironolactone 25 mg tablet 25 mg PO DAILY Patient Comments: TAKE ONE TABLET BY MOUTH EVERY DAY carvedilol 3.125 mg tablet 3.125 mg PO BID Patient Comments: TAKE ONE TABLET BY MOUTH TWICE DAILY metformin 1,000 mg tablet 1,000 mg PO BID Patient Comments: TAKE ONE TABLET BY MOUTH TWICE DAILY ketoconazole 2 % cream 1 applic TOPICAL BID Patient Comments: APPLY TOPICALLY TO THE AFFECTED AREA(S) TWICE DAILY FOR fungal infection prasugrel 10 mg tablet 10 mg PO DAILY Patient Comments: TAKE ONE TABLET BY MOUTH EVERY DAY Jardiance 10 mg tablet 10 mg PO DAILY Patient Comments: TAKE ONE TABLET BY MOUTH EVERY DAY Entresto 24-26 mg tablet 1 tab PO DAILY Patient Comments: TAKE ONE TABLET BY MOUTH TWICE DAILY Repatha SureClick 140 mg/mL pen injector 140 mg SQ WEEKLY Patient Comments: INJECT 140 MG SUBCUTANEOUSLY EVERY 2 WEEKS Ozempic 2 mg/dose (8 mg/3 mL) pen injector 2 mg SQ WEEKLY Patient Comments: INJECT 2 MG SUBCUTANEOUSLY ONCE A WEEK Referrals Follow up/Referrals: Papito Venegas DO [Primary Care Provider] - See instructions Activity Restrictions/Add. Instructions Additional Instructions/Restrictions: *Monitor Temp, Over the counter Motrin or Tylenol as directed/as needed Tylenol every 4 hours and Motrin every 6 hours (as long as your family doctor has told you that you can take it) for fever or pain. and straight to ER if unable to lower temp less than 101.0 after medication given *Warm salt water gargles may help to soothe the throat *Throat Lozenges? *Warm fluids like tea with honey may help to soothe the throat? *Sleep elevated *Humidifier/Vaporizer *If you did not take Penicillin shot or was unable to, start taking antibiotic immediately and make sure that you take it for the FULL length of time although you should start to feel better in 24-48 hours *change toothbrush and toothpaste 24-48 hours after starting to take antibiotics so you do not reinfect yourself Monitor Temp. Tylenol and/or Ibuprofen as needed. ER if fever is no less than 101 despite alternating Tylenol and Ibuprofen * Encourage fluids, water, Gatorade, powerade, pedialyte if infant/toddler/or child *Cold fluids, popsicles and ice cream may feel good on his throat Follow up IMMEDIATELY for new or worsening symptoms or no Noticeable improvement over the next 48-72 hours. 911 for difficulty breathing or swallowing Clinical Impressions Clinical Impression: Strep throat Instructions Patient Instructions: DI for Strep Throat, Strep Throat, DI for Nausea -- Adult Discharge ED Provider: Julieta Lord [facility] [place] HPI General Stated complaint: fever, vomiting, sweating, cough, ST, BA Mode of Arrival: Ambulatory Source of Information: Patient Limitations: No Limitations Time Seen by Provider: 12/06/23 12:10 Description of Symptoms (Recalled from Triage Doc. by RN): PATIENT C/O SORE THROAT, SWEATING, FEVER, AND VOMITING SINCE YESTERDAY HEENT Symptoms (Recalled from RN notes): Yes Resp Symptoms (Recalled from RN notes): No Skin Symptoms (Recalled from RN notes): No MS Symptoms (Recalled from RN notes): No Functional Status (Recalled from RN notes): WNL History of Present Illness Provider Complaint: Patient states that he hasn't been feeling bad for several days States that he has been having sore throat, vomiting, sweating, fever, headache and feeling achy all over so today when he was still not feeling any better he came in to get checked Related Data Home Medications Medication Instructions Recorded Confirmed blood-glucose meter (OneTouch #1 ea 10/25/23 12/06/23 Verio Flex Meter) lancets 33 gauge (OneTouch Delica #100 ea 10/25/23 12/06/23 Plus Lancet) aspirin 81 mg tablet,delayed 81 mg PO DAILY 12/06/23 12/06/23 release atorvastatin 80 mg tablet 80 mg PO DAILY 12/06/23 12/06/23 carvedilol 3.125 mg tablet 3.125 mg PO BID 12/06/23 12/06/23 empagliflozin 10 mg tablet 10 mg PO DAILY 12/06/23 12/06/23 (Jardiance) evolocumab 140 mg/mL subcutaneous 140 mg SQ WEEKLY 12/06/23 12/06/23 pen injector (Steve Torres) ketoconazole 2 % topical cream 1 applic topical BID 12/06/23 12/06/23 metformin 1,000 mg tablet 1,000 mg PO BID 12/06/23 12/06/23 prasugrel 10 mg tablet 10 mg PO DAILY 12/06/23 12/06/23 sacubitril 24 mg-valsartan 26 mg 1 tab PO DAILY 12/06/23 12/06/23 tablet (Entresto) semaglutide 2 mg/dose (8 mg/3 mL) 2 mg SQ WEEKLY 12/06/23 12/06/23 subcutaneous pen injector (Ozempic) spironolactone 25 mg tablet 25 mg PO DAILY 12/06/23 12/06/23 Previous Rx's Medication Instructions Recorded pen needle, diabetic 31 gauge x #100 ea 05/04/2311/21 (Pen Needle) blood sugar diagnostic (Blood #50 ea 08/09/23 Glucose Test strips) lancets #200 ea 08/09/23 ondansetron 4 mg disintegrating 4 mg PO Q8H PRN nausea and 12/06/23 tablet vomiting #10 tabs penicillin V potassium 500 mg 500 mg PO BID #20 tabs 12/06/23 tablet Allergies Allergy/AdvReac Type Severity Reaction Status Date / Time No Known Allergies Allergy Verified 11/22/23 13:20 Worker's Comp Is this a Worker's Comp case?: No [facility] Disclaimer: The information contained in this section may have been updated after the patient was seen, as this information can be updated by other users. Medical History (Updated 12/06/23 @ 12:29 by Julieta Lord APRN) Kidney stone History of heart attack Hyperlipidemia Hypertension DJD (degenerative joint disease), lumbar Surgical History (Updated 12/06/23 @ 12:04 by Joyce Cisneros RN) History of cardiac cath History of coronary artery stent placement Social History Smoking Status: Former smoker tobacco type: cigarettes alcohol intake: never substance use type: marijuana current occupational status: employed Travel in the last 8 weeks: None ROS Obtained: Yes All systems reviewed & no additional complaints except as documented and Yes Systems reviewed as appropriate & no additional complaints except as documented Constitutional Constitutional: Reports system reviewed and no additional complaints, except as documented, Reports as per HPI, Reports body ache, Reports chills and Reports headache(s) ENT Ears, Nose, Mouth, and Throat: Reports system reviewed and no additional complaints, except as documented, Reports as per HPI, Reports headache(s), Reports nasal congestion and Reports sore throat Cardiovascular Cardiovascular: Reports system reviewed and no additional complaints, except as documented and Reports as per HPI Respiratory Respiratory: Reports system reviewed and no additional complaints, except as documented and Reports as per HPI Gastrointestinal Gastrointestingal: Reports system reviewed and no additional complaints, except as documented, as per HPI, nausea and vomiting Genitourinary Male Genitourinary: Reports system reviewed and no additional complaints, except as documented and Reports as per HPI Neurologic Neurologic: Reports headache(s) Physical Exam General General appearance: alert and in no apparent distress ENT ENT exam: Present mucous membranes moist Expanded ENT Exam Nose exam: Absent sinus tenderness Throat exam: Present tonsillar erythema and tonsillar exudate Respiratory Respiratory exam: Present normal lung sounds bilaterally; Absent respiratory distress or wheezes Cardiovascular Cardiovascular exam: Present regular rate, normal rhythm and normal heart sounds Abdominal Exam Abdominal exam: Present soft and normal bowel sounds; Absent distention or tenderness Neurological Exam Neurological exam: Present alert, oriented X3 and normal gait Medical Decision Making Amador Inquiry Pt receiving controlled substance: No [place] was queried for this patient: No Vital Signs: 12/06/23 12:00 Temperature 99.4 F Temperature Source Oral Pulse Rate [Left Brachial] 122 H Respiratory Rate 20 Blood Pressure [Left Arm] 135/75 Blood Pressure Mean [Left Arm] 95 Blood Pressure Source [Left Arm] Automatic Cuff Blood Pressure Position [Left Arm] Sitting 02 Sat by Pulse Oximetry 99 Oxygen Delivery Method Room Air Lab Data Lab results reviewed: Yes I reviewed the patient's lab results.
[2023-12-06 12:12] LABS: UTC Strep Screen (Rapid) Positive (Negative)
[2023-12-06 12:28] VITALS: BP 135/75; PULSE 122; RESP 20; TEMP 37.4; O2SAT 99
== END 2023-12-06 12:30 | disposition home or self-care (01) ==
PROVIDERS: Emergency Provider Nurse Practitioner; PCP Internal Medicine
DX: J02.0 Streptococcal pharyngitis (principal); R07.0 Pain in throat; R50.9 Fever, unspecified; R51.9 Headache, unspecified; R11.2 Nausea with vomiting, unspecified; E11.9 Type 2 diabetes mellitus without complications; Z79.84 Long term (current) use of oral hypoglycemic drugs; Z79.85 Long-term (current) use of injectable non-insulin antidiabetic drugs
CPT/HCPCS: 87880; 99204; 99212; G0463

== ENCOUNTER 2023-12-24 12:01 | Outpatient (CLI) | payer OTHER, SELFPAY ==
[2023-12-24 12:25] LABS: Basophils # 0.1 K/mm3 (0-0.2); Basophils % 1.2 % (0.1-2.0); Eosinophils # 0.2 K/mm3 (0.0-0.4); Eosinophils % 1.8 % (0.1-12.0); Hematocrit 47.6 % (42.0-52.0); Hemoglobin 15.6 g/dL (14.1-18.0); Lymphocytes # 2.8 K/mm3 (0.7-4.5); Lymphocytes % 29.4 % (10-50); Mean Corpuscular HGB Conc 32.8 g/dL (31.8-35.4); Mean Corpuscular Hemoglobin 28.6 pg (27.0-31.2); Mean Corpuscular Volume 87.3 fl (80-94); Mean Platelet Volume 7.9 fl (7.4-10.4); Monocytes # 0.4 K/mm3 (0.1-1.0); Monocytes % 4.5 % (1.7-9.3); Neutrophils # 5.9 K/mm3 (1.8-7.8); Platelet Count 347 K/mm3 (142-424); Red Blood Count 5.45 M/mm3 (4.60-6.20); Red Cell Distribution Width 14.1 % (11.5-17.5); White Blood Count 9.4 K/mm3 (4.8-10.8)
[2023-12-24 13:01] LABS: Alanine Aminotransferase 38 U/L (12-78); Albumin Level 4.6 g/dl (3.5-5.0); Alkaline Phosphatase 56 U/L (38-126); Anion Gap 15.2 mEq/L (5-15); Aspartate Amino Transferase 29 U/L (17-59); Bilirubin,Indirect 0.4 mg/dL (0.0-0.9); Bilirubin,Total 0.4 mg/dl (0.2-1.3); Bilirubin,Unconjugated 0.4 mg/dL (0.0-1.1); Blood Urea Nitrogen 15 mg/dl (9-20); Calcium 9.6 mg/dl (8.4-10.2); Carbon Dioxide 24 mmol/L (22.0-30.0); Chloride 106 mmol/L (98-107); Chol/HDL Ratio 5.6 (1-3.5); Cholesterol 135 mg/dl (140-200); Estimated Glomerular Filt Rate 86 ml/min (>60); GFR (African American) 104 ML/MIN (>60); Glucose 125 mg/dl (74-100); HDL Cholesterol 24 mg/dl (40-60); Magnesium 1.8 mg/dl (1.6-2.3); Potassium 4.2 mmoL/L (3.5-5.1); Sodium 141 mmol/L (136-145); Total Protein,Serum 7.4 g/dl (6.3-8.2); Triglycerides 243 mg/dl (30-150); VLDL Cholesterol 49 mg/dL (0-40)
[2023-12-24 13:17] LABS: Free T4 (Free Thyroxine) 1.07 ng/dl (0.78-2.19)
== END 2023-12-24 23:59 | disposition home or self-care (01) ==
LOC: LAB 12:02
PROVIDERS: PCP Internal Medicine; Visit Provider Nurse Practitioner Family
DX: I25.10 Atherosclerotic heart disease of native coronary artery without angina pectoris (principal); E11.9 Type 2 diabetes mellitus without complications; E78.5 Hyperlipidemia, unspecified; Z72.0 Tobacco use; E66.9 Obesity, unspecified; Z95.5 Presence of coronary angioplasty implant and graft
CPT/HCPCS: 36415; 80048; 80061; 80076; 83735; 84439; 84443; 85025

== ENCOUNTER 2024-07-31 16:10 | Outpatient (CLI) | payer OTHER, SELFPAY ==
[2024-07-31 18:35] LABS: Hemoglobin A1C 6.2 % (4.0-6.0)
[2024-07-31 18:50] LABS: HIV Combo NEGATIVE (Negative)
[2024-07-31 18:57] LABS: Hepatitis C Ab Qual. W/ RFX NEGATIVE (Negative)
== END 2024-07-31 23:59 | disposition home or self-care (01) ==
LOC: LAB.DROPOF 08-01 10:30
PROVIDERS: PCP Internal Medicine; Visit Provider Internal Medicine
DX: Z11.59 Encounter for screening for other viral diseases (principal); Z11.4 Encounter for screening for human immunodeficiency virus [HIV]; Z13.1 Encounter for screening for diabetes mellitus
CPT/HCPCS: 83036; 86803; 87389

== ENCOUNTER 2024-09-29 13:49 | Outpatient (CLI) | payer OTHER, SELFPAY ==
[2024-09-29 14:37] LABS: Basophils # 0.1 K/mm3 (0-0.2); Basophils % 1.4 % (0.1-2.0); Eosinophils # 0.2 K/mm3 (0.0-0.4); Eosinophils % 2.5 % (0.1-12.0); Hemoglobin 16.2 g/dL (14.1-18.0); Lymphocytes # 3.5 K/mm3 (0.7-4.5); Lymphocytes % 36.2 % (10-50); Mean Corpuscular HGB Conc 33.1 g/dL (31.8-35.4); Mean Corpuscular Hemoglobin 28.8 pg (27.0-31.2); Mean Corpuscular Volume 87.2 fl (80-94); Mean Platelet Volume 9.4 fl (7.4-10.4); Monocytes # 0.7 K/mm3 (0.1-1.0); Monocytes % 7.6 % (1.7-9.3); Platelet Count 350 K/mm3 (142-424); Red Blood Count 5.62 M/mm3 (4.60-6.20); Red Cell Distribution Width 13.3 % (11.5-17.5); White Blood Count 9.6 K/mm3 (4.8-10.8)
[2024-09-29 15:10] LABS: Alanine Aminotransferase 70 U/L (12-78); Albumin Level 4.8 g/dl (3.5-5.0); Alkaline Phosphatase 50 U/L (38-126); Anion Gap 7.2 mEq/L (5-15); Aspartate Amino Transferase 34 U/L (17-59); Bilirubin,Direct 0.3 mg/dl (0.0-0.4); Bilirubin,Indirect 0.3 mg/dL (0.0-0.9); Bilirubin,Total 0.6 mg/dl (0.2-1.3); Bilirubin,Unconjugated 0.3 mg/dL (0.0-1.1); Blood Urea Nitrogen 17 mg/dl (9-20); Calcium 10.5 mg/dl (8.4-10.2); Carbon Dioxide 31 mmol/L (22.0-30.0); Chloride 106 mmol/L (98-107); Chol/HDL Ratio 2.7 (1-3.5); Cholesterol 90 mg/dl (140-200); Estimated Glomerular Filt Rate 111 ml/min (>60); GFR (African American) 135 ML/MIN (>60); Glucose 140 mg/dl (74-100); HDL Cholesterol 33 mg/dl (40-60); Potassium 4.2 mmoL/L (3.5-5.1); Sodium 140 mmol/L (136-145); Total Protein,Serum 7.4 g/dl (6.3-8.2); Triglycerides 184 mg/dl (30-150); VLDL Cholesterol 37 mg/dL (0-40)
[2024-09-29 15:21] LABS: Direct LDL Cholesterol < 30.00 mg/dL (100-129)
[2024-09-29 15:26] LABS: Free T4 (Free Thyroxine) 1.07 ng/dl (0.78-2.19)
[2024-09-29 15:40] LABS: Thyroid Stimulating Hormone 1.56 uIU/mL (0.465-4.68)
[2024-09-29 15:54] LABS: Hemoglobin A1C 5.8 % (4.0-6.0)
== END 2024-09-29 23:59 | disposition home or self-care (01) ==
LOC: LAB 13:50
PROVIDERS: PCP Internal Medicine; Visit Provider Physician Assistant
DX: I25.10 Atherosclerotic heart disease of native coronary artery without angina pectoris (principal); I50.20 Unspecified systolic (congestive) heart failure; E78.5 Hyperlipidemia, unspecified; E11.9 Type 2 diabetes mellitus without complications; E66.9 Obesity, unspecified
CPT/HCPCS: 36415; 80048; 80061; 80076; 83036; 83735; 84439; 84443; 85025